=== PATIENT | female | born 1955 | race Caucasian/White ===

== ENCOUNTER 2017-09-01 06:27 | Inpatient (IN) | payer MEDICAID, SELFPAY ==
[2017-08-27 08:44] VITALS: BP 102/56; PULSE 53; RESP 14; TEMP 36.1; O2SAT 96; BMI 35.6
--- NOTE | 2017-08-27 09:23 | SDCEKG_ITS ---
Test Reason : Blood Pressure : / mmHG Vent. Rate : 050 BPM Atrial Rate : 050 BPM P-R Int : 134 ms QRS Dur : 074 ms QT Int : 444 ms P-R-T Axes : 032 -16 -27 degrees QTc Int : 404 ms Sinus bradycardia Low voltage QRS Possible Inferior infarct , age undetermined Abnormal ECG Confirmed by CALLI THOMPSON, CAROLINE ([id number]), editor sound ROSSY PURCELL ([id number]) on 08/29/2017 9:26:38 AM Referred By: SONNY COBB Confirmed By:CAROLINE MCCURDY MD
[2017-08-27 10:23] LABS: Hematocrit 38.8 % (37-47); Hemoglobin 12.8 g/dl (12.0-15.0); Mean Corpuscular Hgb 32.6 pg (27.0-32.0); Mean Corpuscular Volume 98.7 fL (81-99); Mean Platelet Vol. 12.6 fl (6.2-12.0); Platelet Count 238 K/mm3 (150-450); RBC Distribution Width SD 54.5 fl (35.1-43.9); Red Blood Count 3.93 M/mm3 (4.2-5.4); White Blood Count 4.5 K/mm3 (4.4-11.0)
[2017-08-27 10:25] LABS: Scan Indicated on CBC? Y/N NO
[2017-08-27 10:27] LABS: International Normalized Ratio 1.1; Prothrombin Time (Protime)PT. 13.9 SECONDS (11.7-14.9)
[2017-08-27 10:28] LABS: Partial Thromboplast Time 29.1 Seconds (24.1-36.2)
[2017-08-27 11:05] LABS: AST(SGOT) 21 U/L (15-37); Alanine Aminotransfer ALT/SGPT 32 U/L (13-56); Albumin, Serum 3.4 g/dL (3.2-5.0); Alkaline Phosphatase 72 U/L (45-117); Anion Gap 7 (5-15); BUN 16 mg/dL (7-18); BUN/Creat Ratio 23.1 RATIO (10-20); Calcium,Total 8.8 mg/dL (8.5-10.1); Chloride 103 mmol/L (98-107); Creatinine, Serum 0.69 mg/dL (0.55-1.02); EST Glomerular Filtration Rate 91 mL/min (>60); Est Glom Filt Rate - Afr Amer 110 mL/min (>60); Estimated Creatinine Clearance 59.94 ml/min; Globulin 4.2 g/dL (2.2-4.2); Glucose 85 mg/dL (74-106); Potassium 3.9 mmol/L (3.5-5.1); Protein, Total 7.6 g/dL (6.4-8.2); Sodium Level 140 mmol/L (136-145); Thyroid Stim Hormone (TSH) 1.52 uIU/mL (0.358-3.74)
[2017-09-01] VITALS (13 sets, daily range): BP systolic 83–116; BP diastolic 53–66; PULSE 49–112; RESP 16–18; TEMP 36–36.6; O2SAT 91–100; BMI 35.6
[2017-09-01] MEDS: Celecoxib 200 MG Capsule 400 MG PO (07:13)
[2017-09-01] MEDS: oxyCODONE HCl Cr 10 MG Tablet PO (07:14)
[2017-09-01] MEDS: Acetaminophen 500 MG Tablet 1000 MG PO ×3 (07:14→22:28)
[2017-09-01] MEDS: Cefazolin 2 GM in 0.9% Normal Saline 100 ML IV (08:29)
--- NOTE | 2017-09-01 09:31 | PCM.OPRPT ---
Report of Operation Date of Procedure: 09/01/17 Pre-Operative Diagnosis: Severe osteoarthritis left knee Post-Operative Diagnosis: Same Surgery/Procedure Performed:: Total knee arthroplasty left Description of Surgical Findings:: Varus alignment, eburnation of bone, periarticular osteophytes front office representative: Parth Hsieh Type of Anesthesia:: Spinal Anesthesiologist: Sanchez Garcia Special Medications: txa Specimen's removed: Bone and soft tissue Estimated Blood Loss (mL): 100 Fluids Replaced: See anesthesia report Description of Procedure: Implants: [place] triathlon size 3 CR femur, 2 tibia, 29 mm patella all cemented with Simplex, 13 mm ultra congruent CR articulating surface Indications: Patient has severe end-stage osteoarthritis diagnosed via x-rays in the knee. They have failed all forms of conservative measures including activity modification, injections, anti-inflammatories, use of assistive device. The patient has pain that affects on a daily basis and prevents him from doing things that they enjoyed. They have elected to undergo the above procedure. The risks of the procedure were discussed at length and their questions were answered. Procedure description: The patient was greeted in the preoperative area. The left knee was then marked with a surgical marker. Patient was then taken to or Suite 2. They were administered a dose of antibiotics as well as tranexamic acid. Once adequate anesthesia was obtained and airway was secured to placed in supine position on the operating room table. A well-padded tourniquet was placed on the affected extremity. Leg was then prepped and draped in the usual sterile fashion from the knee down. Ioban was used on the skin. Surgical timeout was then performed and confirmed with all present. Six-inch Esmarch was used to examine the limb and tourniquet was then inflated to 250 mmHg. A longitudinal incision was then planned and carried out in the anterior aspect of the knee. The dissection was then carried the length of the incision the extensor mechanism was identified. Standard medial parapatellar arthrotomy was then performed revealing severe eburnation of bone and periarticular osteophytes. There is complete loss of cartilage especially in the medial compartment with varus alignment. Anterior fat pad was removed for visualization purposes and the anterior medial aspect of the tibia was skeletonized for exposure to the knee. The knee was then flexed the patella was inverted. Opening reamer was then used in the femur approximately 1 cm anterior to the attachment of the PCL. The intramedullary valgus wand was then placed in the femur set at 5? of valgus. The distal femoral cutting jig was then applied to the femur with anticipated resection of approximately 8 mm. This was then made with a oscillating saw. The sizing guide was then placed referencing off the posterior condyles and also reference off the epicondylar axis. This was measured and the appropriate size 4-in-1 cutting jig was then applied to the distal femur. Anterior posterior cuts were made followed by the anterior and posterior chamfer cuts. These bony pieces and fragments were removed and placed on the back table. Posterior retractor was then utilized and the tibia was subluxed anteriorly. Extramedullary tibial alignment jig was then applied to the tibia referencing off the medial one third of the tibial tubercle the anterior tibial spine the middle aspect of the tibiotalar joint. Also reference off patient's que[place] slope. The tibial cutting jig was then pinned with anticipated resection of 2 mm off of the deficient medial tibial condyle. This cut was made with the oscillating saw. Once this was complete a laminar butcherette was utilized in both medial lateral meniscus were removed and a posterior capsular osteophytes were also removed. Posterior capsule release was performed in the posterior capsule as well as the geniculate arteries are treated with the aqua Rajeev. The tibia was incised and the appropriate sized tibial tray was then pinned. The femoral trial was then placed and the knee was trialed. Full flexion-extension were easily achieved. The knee seemed to balance quite nicely. Any remaining osteophytes were removed at this time. Once this was complete the patella was everted and the Jose patella reaming device was then utilized the patella was then placed in the appropriate jig and reamer was then used to remove approximately 9 mm of the undersurface of the patella. A soft tissue remaining was in the way was removed and patella trial was then placed listed maintain excellent tracking using the no thumbs technique. The tibial tray at this point was punched to accommodate the fins of the final implant. At this point cement was mixed on the back table. The trial components were removed and the knee was copiously irrigated. Did use a cocktail of injection for postoperative pain control. The final components were then cemented in the standard fashion and excess cement was removed with cement removal tools and patellar clamp is placed in the patella. As the cement had cured in full extension tourniquet was deflated and hemostasis was perfect with Bovie cautery as well as the aqua Manus. Needle is once again trialed with different size polyethylenes to ensure the full range of motion was achieved as well as excellent balancing ligamentously was achieved. At this point the knee was copiously irrigated. Final implant was then inserted locking mechanism was engaged and confirmed to be locked. The arthrotomy was then closed with #1 Vicryl aggravate type fashion interrupted. Subcutaneous tissue was closed with 0 Vicryl and surgical glenn were placed in the skin. A occlusive silver impregnated dressing was then applied followed by well-padded sterile dressing secured with an Haile wrap. The patient was taken to the PACU in stable condition. No complications known at this time. Postoperatively we will maintain standard total knee postoperative protocol. The use of the physician supply chain assistant was integral during this procedure. They assisted with positioning placement of the tourniquet retracting closure and placement of the dressing. The procedure would have been much more difficult without their expertise and assistance - Admit VTE Documentation VTE Present on Admission: Yes VTE Mechan Device Prophylaxis: SCD's, Thigh High RICARDO Hose VTE Pharm Prophylaxis ordered?: Yes
--- NOTE | 2017-09-01 09:34 | OP.PCM_ITS ---
Report of Operation Date of Procedure: 09/01/17 Pre-Operative Diagnosis: Severe osteoarthritis left knee Post-Operative Diagnosis: Same Surgery/Procedure Performed:: Total knee arthroplasty left Description of Surgical Findings:: Varus alignment, eburnation of bone, periarticular osteophytes supportability engineer: Parth Hsieh Type of Anesthesia:: Spinal Anesthesiologist: Sanchez Garcia Special Medications: txa Specimen's removed: Bone and soft tissue Estimated Blood Loss (mL): 100 Fluids Replaced: See anesthesia report Description of Procedure: Implants: [place] triathlon size 3 CR femur, 2 tibia, 29 mm patella all cemented with Simplex, 13 mm ultra congruent CR articulating surface Indications: Patient has severe end-stage osteoarthritis diagnosed via x-rays in the knee. They have failed all forms of conservative measures including activity modification, injections, anti-inflammatories, use of assistive device. The patient has pain that affects on a daily basis and prevents him from doing things that they enjoyed. They have elected to undergo the above procedure. The risks of the procedure were discussed at length and their questions were answered. Procedure description: The patient was greeted in the preoperative area. The left knee was then marked with a surgical marker. Patient was then taken to or Suite 2. They were administered a dose of antibiotics as well as tranexamic acid. Once adequate anesthesia was obtained and airway was secured to placed in supine position on the operating room table. A well-padded tourniquet was placed on the affected extremity. Leg was then prepped and draped in the usual sterile fashion from the knee down. Ioban was used on the skin. Surgical timeout was then performed and confirmed with all present. Six-inch Esmarch was used to examine the limb and tourniquet was then inflated to 250 mmHg. A longitudinal incision was then planned and carried out in the anterior aspect of the knee. The dissection was then carried the length of the incision the extensor mechanism was identified. Standard medial parapatellar arthrotomy was then performed revealing severe eburnation of bone and periarticular osteophytes. There is complete loss of cartilage especially in the medial compartment with varus alignment. Anterior fat pad was removed for visualization purposes and the anterior medial aspect of the tibia was skeletonized for exposure to the knee. The knee was then flexed the patella was inverted. Opening reamer was then used in the femur approximately 1 cm anterior to the attachment of the PCL. The intramedullary valgus wand was then placed in the femur set at 5? of valgus. The distal femoral cutting jig was then applied to the femur with anticipated resection of approximately 8 mm. This was then made with a oscillating saw. The sizing guide was then placed referencing off the posterior condyles and also reference off the epicondylar axis. This was measured and the appropriate size 4-in-1 cutting jig was then applied to the distal femur. Anterior posterior cuts were made followed by the anterior and posterior chamfer cuts. These bony pieces and fragments were removed and placed on the back table. Posterior retractor was then utilized and the tibia was subluxed anteriorly. Extramedullary tibial alignment jig was then applied to the tibia referencing off the medial one third of the tibial tubercle the anterior tibial spine the middle aspect of the tibiotalar joint. Also reference off patient's [employer] slope. The tibial cutting jig was then pinned with anticipated resection of 2 mm off of the deficient medial tibial condyle. This cut was made with the oscillating saw. Once this was complete a laminar weir fisherman was utilized in both medial lateral meniscus were removed and a posterior capsular osteophytes were also removed. Posterior capsule release was performed in the posterior capsule as well as the geniculate arteries are treated with the aqua Rajeev. The tibia was incised and the appropriate sized tibial tray was then pinned. The femoral trial was then placed and the knee was trialed. Full flexion-extension were easily achieved. The knee seemed to balance quite nicely. Any remaining osteophytes were removed at this time. Once this was complete the patella was everted and the Jose patella reaming device was then utilized the patella was then placed in the appropriate jig and reamer was then used to remove approximately 9 mm of the undersurface of the patella. A soft tissue remaining was in the way was removed and patella trial was then placed listed maintain excellent tracking using the no thumbs technique. The tibial tray at this point was punched to accommodate the fins of the final implant. At this point cement was mixed on the back table. The trial components were removed and the knee was copiously irrigated. Did use a cocktail of injection for postoperative pain control. The final components were then cemented in the standard fashion and excess cement was removed with cement removal tools and patellar clamp is placed in the patella. As the cement had cured in full extension tourniquet was deflated and hemostasis was perfect with Bovie cautery as well as the aqua Manus. Needle is once again trialed with different size polyethylenes to ensure the full range of motion was achieved as well as excellent balancing ligamentously was achieved. At this point the knee was copiously irrigated. Final implant was then inserted locking mechanism was engaged and confirmed to be locked. The arthrotomy was then closed with #1 Vicryl aggravate type fashion interrupted. Subcutaneous tissue was closed with 0 Vicryl and surgical glenn were placed in the skin. A occlusive silver impregnated dressing was then applied followed by well-padded sterile dressing secured with an Haile wrap. The patient was taken to the PACU in stable condition. No complications known at this time. Postoperatively we will maintain standard total knee postoperative protocol. The use of the physician assistant professor nurse education was integral during this procedure. They assisted with positioning placement of the tourniquet retracting closure and placement of the dressing. The procedure would have been much more difficult without their expertise and assistance - Admit VTE Documentation VTE Present on Admission: Yes VTE Mechan Device Prophylaxis: SCD's, Thigh High RICARDO Hose VTE Pharm Prophylaxis ordered?: Yes
[2017-09-01] MEDS: Scopolamine 1mg/72hr Patch 1 PATCH TD (10:25)
[2017-09-01] MEDS: Lactated Ringers 1,000 ML 125 ML IV ×2 (13:54→22:29)
[2017-09-01] MEDS: Lactated Ringers 1,000 ML 999 ML IV (15:00)
--- NOTE | 2017-09-01 15:03 | NURSING ---
TR[place] POSITION FOR C/O DIZZINESS, GIVING IV FLUID BOLUS PER NEW ORDER.
[2017-09-01] MEDS: Aspirin 325 MG Tablet PO (17:39)
[2017-09-01] MEDS: Primidone 250 MG Tablet PO (17:39)
[2017-09-01] MEDS: Cefazolin 1 GM/50 ML BAG IV (17:39)
[2017-09-01] MEDS: Divalproex Sodium 250 MG Tablet PO (17:40)
[2017-09-01] MEDS: Celecoxib 200 MG Capsule PO (22:27)
[2017-09-01] MEDS: Divalproex Sodium 125 MG Tablet PO (22:27)
[2017-09-01] MEDS: Senna/Docusate Sodium 1 Tablet 2 TABLET PO (22:28)
[2017-09-02] MEDS: Cefazolin 1 GM/50 ML BAG IV (00:38)
[2017-09-02] MEDS: Ketorolac 15 MG/ML Vial IV (03:30)
[2017-09-02 04:00] VITALS: BP 98/58; PULSE 51; RESP 16; TEMP 36.6; O2SAT 96
[2017-09-02] MEDS: Divalproex Sodium 250 MG Tablet PO ×4 (06:00→17:10)
[2017-09-02] MEDS: Acetaminophen 500 MG Tablet 1000 MG PO ×3 (06:00→21:28)
[2017-09-02] MEDS: Lactated Ringers 1,000 ML 125 ML IV (06:00)
[2017-09-02] MEDS: Levothyroxine 100 MCG Tablet PO (06:00)
[2017-09-02 07:11] LABS: Hemoglobin 11.2 g/dl (12.0-15.0); Mean Corp Hgb Conc 32.9 g/gl (32-36); Mean Corpuscular Hgb 32.2 pg (27.0-32.0); Mean Corpuscular Volume 97.7 fL (81-99); Mean Platelet Vol. 12.4 fl (6.2-12.0); Platelet Count 218 K/mm3 (150-450); RBC Distribution Width CV 15.1 % (11.6-14.6); RBC Distribution Width SD 53.4 fl (35.1-43.9); Red Blood Count 3.48 M/mm3 (4.2-5.4); White Blood Count 6.5 K/mm3 (4.4-11.0)
[2017-09-02 07:18] LABS: Scan Indicated on CBC? Y/N NO
[2017-09-02 07:20] LABS: Anion Gap 8 (5-15); BUN 11 mg/dL (7-18); BUN/Creat Ratio 16.2 RATIO (10-20); Calcium,Total 8.4 mg/dL (8.5-10.1); Chloride 106 mmol/L (98-107); Creatinine, Serum 0.68 mg/dL (0.55-1.02); EST Glomerular Filtration Rate 93 mL/min (>60); Est Glom Filt Rate - Afr Amer 112 mL/min (>60); Estimated Creatinine Clearance 60.82 ml/min; Glucose 110 mg/dL (74-106); Potassium 3.8 mmol/L (3.5-5.1); Sodium Level 141 mmol/L (136-145)
--- NOTE | 2017-09-02 07:29 | PCM.PN.ORT ---
Subjective: Patient sitting at bedside. States pain is well-managed. Per patient as well as nursing yesterday patient had brief period of syncopal episode with a near fall in the bathroom. Patient states she had no injury associated with this fall. She feels that she is improved and does not feel as lightheaded as she did yesterday. Patient denies chest pain, shortness breath, calf pain, nausea vomiting. States she had similar episode on her previous surgery Objective: Dressings clean dry intact, negative signs and symptoms of DVT. Patient is afebrile patient's hypotensive from her preoperative baseline. Neurovascular is otherwise intact. Labs within normal limits - Physical Exam General: Alert, Oriented x3, Cooperative HEENT: PERRLA Oral: Moist Mucosa Cardiovascular: Regular rate Neurological: Cranial nerves II-XII grossly intact Psych/Mental Status: Normal Affect, Alert and oriented to time, place, person, mood and affect Vital Signs Temp Pulse Resp BP Pulse Ox 98 F 51 L 16 98/58 L 96 09/02/17 04:00 09/02/17 04:00 09/02/17 04:00 09/02/17 04:00 09/02/17 04:00 Oxygen Delivery Method Room Air Weight: 82.9 kg Body Mass Index (BMI) 35.6 Intake and Output for Last 24 Hours 08/31/17 09/01/17 09/02/17 23:59 23:59 23:59 Intake Total 3385 / 3385 2110 / 2110 Output Total 600 / 600 1450 / 1450 Balance 2785 / 2785 660 / 660 Laboratory Tests Past 24 Hrs 09/02/17 09/02/17 06:35 06:35 WBC 6.5 RBC 3.48 L Hgb 11.2 L Hct 34.0 L MCV 97.7 MCH 32.2 H MCHC 32.9 RDW 15.1 H RDW Differential 53.4 H Plt Count 218 MPV 12.4 H Sodium 141 Potassium 3.8 Chloride 106 Carbon Dioxide 27.0 Anion Gap 8 BUN 11 Creatinine 0.68 Estim Creat Clear Calc 60.82 Est GFR (MDRD) Af Amer 112 Est GFR (MDRD) Non-Af 93 BUN/Creatinine Ratio 16.2 Glucose 110 H Calcium 8.4 L Medical Necessity - Tobacco Use Smoking Status: Never smoker Assessment/Plan Status post left total knee arthroplasty Plan 1. Continue all pain medications as prescribed 2. Aspirin 325 mg 1 p.o. every 12 hours ?30 day for postop DVT prophylaxis 3. Begin physical therapy today weight-bear as tolerated, with walker 4. Encourage incentive spirometry 5. IV bolus 500 normal saline over 1 hour 6. Possible discharge home tomorrow
[2017-09-02] MEDS: Lactated Ringers 1,000 ML 999 ML IV (07:30)
[2017-09-02 07:35] VITALS: BP 98/54; PULSE 52; RESP 16; TEMP 36.7; O2SAT 94
[2017-09-02 07:38] VITALS: PULSE 52
[2017-09-02] MEDS: Aspirin 325 MG Tablet PO ×2 (07:46→17:10)
[2017-09-02] MEDS: Primidone 250 MG Tablet PO ×2 (07:46→17:13)
[2017-09-02] MEDS: Famotidine 20 MG Tablet PO (09:48)
[2017-09-02] MEDS: Senna/Docusate Sodium 1 Tablet 2 TABLET PO ×2 (09:48→21:28)
[2017-09-02] MEDS: FLUoxetine 20 MG Capsule PO (09:48)
[2017-09-02] MEDS: Celecoxib 200 MG Capsule PO ×2 (09:49→21:27)
[2017-09-02] MEDS: oxyCODONE 5 MG Tablet PO ×2 (12:45→17:17)
[2017-09-02 13:35] VITALS: BP 100/59; PULSE 62; RESP 16; TEMP 36.7; O2SAT 97
--- NOTE | 2017-09-02 15:29 | CASEMGMT ---
RENATA PARIKH Face to Face with patient for initial transition planning/care coordination assessment. RN JL introduced self and role at [facility]. Patient sitting in chair, alert and oriented. Patient willing to participate in assessment and is able to answer all questions appropriately. Care providers, pharmacy, and demographics verified. Patient states that she will be discharging to her [facility] house after surgery. Patient states that she is has a walker and shower chair at home. Patient wishes to discharge home and is setup with outpatient therapy at [facility] Patient states she has no further needs or concerns at this time. CM to follow for discharge planning needs that may arise. Disposition Plan: Patient to discharge home with outpatient therapy, family support, and follow-up plans in place.
[2017-09-02 20:00] VITALS: BP 104/54; PULSE 65; RESP 16; TEMP 36.9; O2SAT 96
[2017-09-02] MEDS: morphine SR 15 MG Tablet PO (21:27)
[2017-09-02] MEDS: Divalproex Sodium 125 MG Tablet PO (21:29)
[2017-09-03 02:17] VITALS: BP 127/54; PULSE 53; RESP 18; TEMP 36.9; O2SAT 95
[2017-09-03] MEDS: Levothyroxine 100 MCG Tablet PO (05:31)
[2017-09-03] MEDS: Divalproex Sodium 250 MG Tablet PO ×3 (05:31→13:40)
[2017-09-03] MEDS: Acetaminophen 500 MG Tablet 1000 MG PO ×2 (05:32→13:40)
[2017-09-03 07:00] LABS: Hematocrit 33.4 % (37-47); Mean Corp Hgb Conc 32.9 g/gl (32-36); Mean Corpuscular Hgb 32.4 pg (27.0-32.0); Mean Corpuscular Volume 98.5 fL (81-99); Mean Platelet Vol. 12.6 fl (6.2-12.0); Platelet Count 210 K/mm3 (150-450); RBC Distribution Width CV 15.4 % (11.6-14.6); RBC Distribution Width SD 55.3 fl (35.1-43.9); Red Blood Count 3.39 M/mm3 (4.2-5.4); White Blood Count 7.5 K/mm3 (4.4-11.0)
[2017-09-03 07:04] LABS: Scan Indicated on CBC? Y/N NO
[2017-09-03 08:00] VITALS: BP 99/61; PULSE 60; RESP 18; TEMP 36.8; O2SAT 95
[2017-09-03] MEDS: morphine SR 15 MG Tablet PO (08:08)
[2017-09-03] MEDS: oxyCODONE 5 MG Tablet PO (08:08)
[2017-09-03] MEDS: Primidone 250 MG Tablet PO (08:09)
[2017-09-03] MEDS: Aspirin 325 MG Tablet PO (08:09)
[2017-09-03] MEDS: FLUoxetine 20 MG Capsule PO (08:10)
[2017-09-03] MEDS: Famotidine 20 MG Tablet PO (08:10)
[2017-09-03] MEDS: Celecoxib 200 MG Capsule PO (08:10)
[2017-09-03 09:00] VITALS: PULSE 60
--- NOTE | 2017-09-03 09:17 | PCM.PN.ORT ---
Subjective: Patient sitting at bedside, pain well-managed. No complaints. Ready for discharge home. Objective: Dressings clean dry intact. Negative signs and symptoms of DVT. Vital signs labs within normal limits. Patient is afebrile neurovascular is otherwise intact. - Physical Exam General: Alert, Oriented x3 HEENT: PERRLA Neurological: Cranial nerves II-XII grossly intact Psych/Mental Status: Normal Affect, Alert and oriented to time, place, person, mood and affect Vital Signs Temp Pulse Resp BP Pulse Ox 98.2 F 60 18 99/61 95 09/03/17 08:00 09/03/17 09:00 09/03/17 08:00 09/03/17 08:00 09/03/17 08:00 Oxygen Delivery Method Room Air Weight: 82.9 kg Body Mass Index (BMI) 35.6 Intake and Output for Last 24 Hours 09/01/17 09/02/17 09/03/17 23:59 23:59 23:59 Intake Total 3385 / 3385 2110 / 2110 400 / 400 Output Total 600 / 600 1450 / 1450 Balance 2785 / 2785 660 / 660 400 / 400 Laboratory Tests Past 24 Hrs 09/03/17 06:40 WBC 7.5 RBC 3.39 L Hgb 11.0 L Hct 33.4 L MCV 98.5 MCH 32.4 H MCHC 32.9 RDW 15.4 H RDW Differential 55.3 H Plt Count 210 MPV 12.6 H Medical Necessity - Tobacco Use Smoking Status: Never smoker Assessment/Plan Status post left total knee arthroplasty Plan 1. Continue all pain medications as prescribed 2. Aspirin 325 mg 1 p.o. every 12 hours ?30 day for postop DVT prophylaxis 3. Continue physical therapy at [facility] weight-bear as tolerated, with walker 4. Follow-up as scheduled 6. Discharge home today
--- NOTE | 2017-09-03 09:22 | PCM.DC.TKR ---
Discharge Diet: No Restrictions Discharge Activity: May Not Drive, May Shower, Use Walker May shower in (days): 2 Ice area for (Minutes): 20 - each hour while awake. Weight Bearing Status: Weight bearing as tolerated Elevate: Operative Extremity Additional Activity Instructions:: Wear elastic stockings for 2 weeks after your surgery. Call your doctor if your incision/area has: Continuous Slow Oozing, Sudden Increased Bleeding, Increased Pain/ Swelling, Increased Redness, Foul Smelling Discharge Call your doctor if you observe: Fever of 101 or Higher, Coldness, Increased Pain - in extremity, Numbness or Tingling, Change in Color, Calf discomfort, Uncontrolled pain Change Dressing in (Days):: 0 - and daily as needed. Remove Dressing in (days):: 9 Cleanse incision/area with: Soap & Water Allergies/Adverse Reactions: Allergies No Known Allergies Allergy (Verified 10/25/14 08:44) Medications to take at Discharge Divalproex Sodium [Depakote] 125 mg PO QHS 10/14/14 Divalproex Sodium [Depakote] 250 mg PO 4X/DAY 10/14/14 Fluoxetine HCl 20 mg PO DAILY 10/14/14 Levothyroxine Sodium [Levoxyl] 100 mcg PO DAILY 10/14/14 Primidone [Mysoline] 250 mg PO BID 10/14/14 Vitamin B Complex 1 each PO DAILY 10/14/14 Acetaminophen [Tylenol] 1,000 mg PO Q8 #90 tab 09/03/17 Aspirin 325 mg PO BIDCM #60 tab 09/03/17 Oxycodone [Oxyir] 5 - 10 mg PO Q4H PRN PRN 7 Days #80 tab 09/03/17 morphine SR tablet [Ms Contin] 15 mg PO BID 7 Days #14 tab 09/03/17 The following prescriptions were given: Oxycodone [Oxyir] 5 - 10 mg PO Q4H PRN PRN 7 Days #80 tab PRN Reason: Mod-Severe Pain (4-1010) Acetaminophen [Tylenol] 1,000 mg PO Q8 #90 tab Aspirin 325 mg PO BIDCM #60 tab morphine SR tablet [Ms Contin] 15 mg PO BID 7 Days #14 tab Primary Care Physician: Dale Dalal MD [Primary Care Provider] - Test Results: Please Follow Up With: Parth Hsieh PA-C
[2017-09-03 13:24] VITALS: BP 96/57; PULSE 57; RESP 18; TEMP 37.1; O2SAT 98
--- NOTE | 2017-09-03 13:42 | NURSING ---
spoke with dr francine luuing ms contin- gave v.o. to stop it and destroy script d/t pt seems weak when taking it-pt and sister updated, Rx detroyed in shredder box and family aware pt not to take any more
== END 2017-09-03 13:55 | disposition home or self-care (01) | DRG 209 ==
LOC: ACINP 08:07 → MS3 11:13
PROVIDERS: Physician Assistant; Admitting Provider Orthopaedic Surgery; Family Provider Family Medicine; PCP Family Medicine; Visit Provider Orthopaedic Surgery
PROC: 0SRD0J9 Replacement of Left Knee Joint with Synthetic Substitute, Cemented, Open Approach (ICD-10-PCS; CPT 27447; principal; 2017-09-01 08:20)
DX: M17.12 Unilateral primary osteoarthritis, left knee (principal); E66.9 Obesity, unspecified; Z68.35 Body mass index [BMI] 35.0-35.9, adult
CPT/HCPCS: 36415; 80048; 80076; 84443; 85027; 85610; 85730; 87081; 93005; 97116; 97162; 97166; 97530; 97535; 97802; C1776; J7120

== ENCOUNTER → 2019-09-09 08:33 | Outpatient (CLI) | payer MEDICARE, SELFPAY ==
--- NOTE | 2019-09-09 08:45 | RAD_ITS ---
STUDY: X-RAY - ESOPHAGUS (BARIUM SWALLOW) WITH FLUOROSCOPY REASON FOR EXAM: Female, 63 years old. Dysphagia, pt states food and pills get stuck sometimes, gallbladder removed TECHNIQUE: 16 view(s) of the esophagus were obtained following swallowing of barium. FLUOROSCOPY TIME (if supplied): (0:17) minutes/seconds COMPARISON: None. FINDINGS: There is no demonstrated esophageal foreign body. There is no demonstrated stricture or mucosal abnormality. Normal gastroesophageal junction, without a demonstrated hiatal hernia. The patient ingested a 12 mm tablet of barium without any difficulty. There is atherosclerotic tortuosity of the aortic arch and descending thoracic aorta. Normal visualized pulmonary parenchyma. There are diffuse degenerative changes of the visualized thoracic spine. RAD/Esophagus Dual Contrast IMPRESSION: Normal plain film x-ray examination (barium swallow) of the esophagus. Electronically Signed: Adolfo Amezcua, at 13:39 EDT , Service support ,
== END ==
PROVIDERS: PCP Family Medicine; Referring Provider Otolaryngology; Visit Provider Otolaryngology
DX: R13.10 Dysphagia, unspecified (principal)
CPT/HCPCS: 74220; 74221

== ENCOUNTER 2020-01-28 14:00 | Emergency (ER) | payer MEDICARE, SELFPAY ==
[2020-01-28 14:02] VITALS: BP 126/78; PULSE 90; RESP 18; TEMP 36.6; O2SAT 96; BMI 32.8
[2020-01-28 14:15] VITALS: BP 145/119; PULSE 88; RESP 18; O2SAT 94
--- NOTE | 2020-01-28 14:18 | CT_ITS ---
INDICATION: LLQ PAIN, DIARRHEA SINCE FRIDAY, BM EVERY 5-10 MIN, HX-SZ, JANIE EXAMINATION: CT ABDOMEN AND PELVIS WITH CONTRAST - CT Abdomen And Pelvis W/ Contrast Injection COMPARISON: None. TECHNIQUE: A CT scan of the abdomen and pelvis was performed with IV contrast contrast administration. Coronal and sagittal reconstruction images were reviewed. This exam was performed according to our departmental dose-optimization program, which includes automated exposure control, adjustment of the mA and/or kV according to patient size and/or use of iterative reconstruction technique. FINDINGS: The lung bases and the base of the heart are normal. The liver is normal.The spleen is normal.The adrenal glands are normal.The head, body, and tail of the pancreas are normal. The right and left kidneys were examined and appear to be normal. Both ureters appear to be normal, and no obstructive uropathy is identified. The abdominal aortal is normal along its course and distribution. No paraortic lymphadenopathy is seen. No abdominal masses or lesions are seen. The CT scan of the pelvis was then reviewed. The common iliac vessels, external iliac vessels, and common femoral vessels are normal along their course and distribution No pelvis masses or lesions are seen. There is fluid distention of loops of colon and particularly the descending portion of the colon with some mild surrounding inflammatory reaction seen at the descending colon/sigmoid junction possibly representing an inflammatory colitis The appendix is not seen No pericecal inflammatory reaction is seen. Bone scanning windows of the lumbar spine and pelvis were reviewed in the coronal and sagittal planes and appear to be normal. CT/Abdomen/Pelvis W IV Cont ONLY IMPRESSION: Fluid distention is noted of the colon with some minimal pericolonic inflammatory reaction of the distal descending colon possibly due to colitis. Electronically Signed: Zhou Angeles, at 16:21 EST Tel , Service support ,
--- NOTE | 2020-01-28 14:19 | EKG12_ITS ---
Test Reason : GEN ILLNESS Blood Pressure : / mmHG Vent. Rate : 072 BPM Atrial Rate : 072 BPM P-R Int : 134 ms QRS Dur : 078 ms QT Int : 406 ms P-R-T Axes : 053 -20 260 degrees QTc Int : 444 ms Normal sinus rhythm ST & T wave abnormality, consider inferior ischemia ST & T wave abnormality, consider anterolateral ischemia Abnormal ECG Confirmed by CALLI THOMPSON, CAROLINE ([id number]), city editor JADE OMSQUEDA ([id number]) on 02/01/2020 9:08:30 AM Referred By: JORDI Confirmed By:CAROLINE MCCURDY MD
--- NOTE | 2020-01-28 14:20 | ED.DCSUM_ITS ---
History of Present Illness Informant: Patient Onset: Days Narrative: 64-year-old female with past medical history of hypothyroidism, GERD, epilepsy presents with complaints of diarrhea. She states 1 month ago she thinks she had Covid because she had fevers/chills/cough/loss of taste and smell. She has had a mild persistent cough and shortness of breath since then. Over the last 5 days she developed profuse nonbloody diarrhea. She has loose stools every hour. She has intermittent brief left-sided abdominal cramping. She had one episode of vomiting several days ago, but none since. She has been keeping down fluids and medications. Previous abdominal surgeries include cholecystectomy. No history of diverticulitis. <Misti Beard - Last Filed: 01/28/20 16:35> <Audi Desir - Last Filed: 01/28/20 22:19> Chief Complaint: Diarrhea Past Medical History Past Medical History: - - hypothyroidism, GERD, epilepsy Smoking Status: Never smoker <Misti Beard - Last Filed: 01/28/20 16:35> <Audi Desir - Last Filed: 01/28/20 22:19> - Allergies and Home Meds Allergies/Adverse Reactions: Allergies No Known Allergies Allergy (Verified 01/28/20 14:06) Primary Care Physician: Dale Dalal MD [Primary Care Provider] - Lor Pettit MD [STAFF PHYSICIAN] - Review of Systems General: Denies: Chills, Fever, Malaise, Sweats Cardiovascular: Denies: Chest pain, Palpitations Respiratory: Denies: Dyspnea, Cough, Dyspnea on exertion Gastrointestinal: Reports: Abdominal pain, Nausea, Vomiting, Diarrhea. Denies: Constipation, Melena, Hematochezia Genitourinary: Denies: Dysuria, Hematuria, Frequency Musculoskeletal: Denies: Back pain, Extremity Pain Skin: Denies: Rash, Wounds Neurological: Denies: Headache, Weakness, Numbness <Misti Beard - Last Filed: 01/28/20 16:35> Physical Exam Vital Signs/Narrative: Vital Signs Temp Pulse Resp BP Pulse Ox 01/28/20 14:15 88 18 145/119 H 94 01/28/20 14:02 97.9 F 90 18 126/78 H 96 Inital Vital Signs reviewed: Yes General: Well nourished, Well developed, No Acute Distress Head: Normocephalic, Atraumatic Eyes: Perrl, EOMI ENT: Moist mucous membranes, No rhinorrhea Neck: Supple, Nontender Cardiovascular: Regular rate, Regular rhythm, No murmurs Respiratory: No distress, CTA bilaterally, Chest nontender Abdomen: Soft, Nondistended, Normal bowel sounds, - - Moderate tenderness to palpation in left lower quadrant, soft with no guarding or rebound Back: Nontender, Normal Inspection. Negative for: CVA tenderness Extremities: Nontender, No edema Skin: Normal color, No rash Neurological: Alert, Oriented x3, Cranial nerves II-XII grossly intact Psychological: Normal affect, Normal Mood <Misti Beard - Last Filed: 01/28/20 16:35> Vital Signs/Narrative: Vital Signs Temp Pulse Resp BP Pulse Ox 01/28/20 15:05 97.9 F 80 19 H 88/56 L 97 01/28/20 14:15 88 18 145/119 H 94 01/28/20 14:02 97.9 F 90 18 126/78 H 96 <Audi Desir - Last Filed: 01/28/20 22:19> Diagnostic/Tx/Re-eval Clinical Impression(s) from Imaging Studies Abdomen/Pelvis CT 01/28/20 14:18 IMPRESSION: Fluid distention is noted of the colon with some minimal pericolonic inflammatory reaction of the distal descending colon possibly due to colitis. Electronically Signed: Zhou Angeles, at 16:21 EST Tel , Service support , Chest X-Ray 01/28/20 14:55 IMPRESSION: Normal portable chest. Electronically Signed: Zhou Angeles at 16:04 EST Tel , Service support , Laboratory Data 01/28/20 01/28/20 14:55 14:55 WBC 8.8 RBC 4.91 Hgb 15.9 H Hct 46.4 MCV 94.5 MCH 32.4 H MCHC 34.3 RDW Std Deviation 45.3 H RDW Coeff of Lucio 13.1 Plt Count 375 MPV 11.0 Immature Gran % (Auto) 0.800 Neut % (Auto) 64.2 Lymph % (Auto) 23.8 [place]iot % (Auto) 10.6 H Eos % (Auto) 0.3 Baso % (Auto) 0.3 Absolute Neuts (auto) 5.7 Absolute Lymphs (auto) 2.09 Nucleated RBC % 0 Sodium 133 L Potassium 3.4 L Chloride 101 Carbon Dioxide 22.0 Anion Gap 10 BUN 34 H Creatinine 1.00 Estim Creat Clear Calc 53.81 Est GFR (MDRD) Af Amer 71 Est GFR (MDRD) Non-Af 59 L BUN/Creatinine Ratio 34.0 H Glucose 105 Calcium 8.3 L Total Bilirubin 0.40 AST 36 ALT 51 Alkaline Phosphatase 90 Troponin I < 0.015 Total Protein 7.6 Albumin 3.2 Globulin 4.4 H Albumin/Globulin Ratio 0.7 L - Rhythm Strip Rhythm Strip: T wave inversions V2-V6 Rate: 72 Ectopy: None - Medical Decision Making Patient presented with diarrhea x4 days. She states she thinks she had Covid recently and her cough has resolved, but she has residual shortness of breath. No chest pain. She appears well nontoxic. Vital signs within normal limits. Heart is regular rate and rhythm with no murmur. Lungs clear to auscultation. She has mild left lower quadrant tenderness on exam with no peritoneal signs. Labs show no leukocytosis. Sodium 133, potassium 3.4, normal renal function. CT shows fluid distention of the colon with minimal pericolonic inflammatory reaction of the distal descending colon possibly due to colitis. They did not comment on diverticulitis but since she has LLQ pain she will be treated with Cipro/Flagyl. First dose was given here. C-diff and stool PCR pending and if positive she will be called with results. She was given a referral to general surgery to have a colonoscopy after symptoms improve as she has not had one in the past. Increase oral hydration. Due to residual shortness of breath, cardiac labs ordered. Troponin negative. EKG shows new T wave inversions in V2 through V6 changed from EKG in 2018. Chest x-ray shows no acute process. She has no chest pain and O2 sat is >= 94%. I have no concern for ACS. She needs to follow-up with her PCP to have a stress test. If she develops chest pain she should return to the ED. She was agreeable with this plan and discharged home in stable condition. <ChiragMisti - Last Filed: 01/28/20 16:35> - Medical Decision Making I supervised the PA and have performed my own pertinent history and physical. Results and treatment plan were discussed. HPI: Patient reports that she has diarrhea that began 3 days ago. She reports that she believes that she had Covid recently, but her cough has resolved. She does have residual mild shortness of breath. She denies any chest pain. Patient believes that her diarrhea began after potentially eating bad lunch meat. She has not been camping out of the country. No recent antibiotic use. She does not drink well water. PE: Vitals: Stable. Afebrile. General: Well-nourished and well-developed. Head: Normocephalic atraumatic. Neck: Supple, no lymphadenopathy. No JVD. Nontender. Cardiovascular: Regular rate and rhythm. No murmurs. Respiratory: No respiratory distress. Clear to auscultation bilaterally. Abdominal: Soft, mild tenderness to palpation on the left lower quadrant, nondistended, normal bowel sounds. No guarding, rebound, or peritoneal signs. Back: Nontender. Extremities: Nontender, no edema. Skin: Normal color, no rash. Neurologic: Alert and oriented ?3. Cranial nerves II through XII are intact. Normal strength and sensation. Psych: Normal affect. Emergency Department course: EKG shows T wave inversions over the precordial leads that are a change from her prior EKG. however, troponin was negative and this may not be acute. CT shows colitis. C. difficile was negative. Treatment Plan: Patient will be discharged on Cipro and Flagyl. Instructed to follow-up with her primary care physician in 5 to 7 days for another exam. Follow-up with Dr. Pettit for colonoscopy. Return to the emergency department for any worsening symptoms. This note was generated with [employer] dictation software. It may contain incorrect words, spelling, and punctuation that were not noted in review of the chart prior to signing. <Audi Desir - Last Filed: 01/28/20 22:19> ED Disposition <Misti Beard - Last Filed: 01/28/20 16:35> <Audi Desir - Last Filed: 01/28/20 22:19> - Plan for ED Patient: Disposition: Home or Assisted Living Diagnosis: Diverticulitis Instructions: ED Diverticulitis Prescriptions: Ciprofloxacin [Cipro] 500 mg PO BID #14 tab Prescription Printed metroNIDAZOLE [Flagyl] 500 mg PO Q6H #40 tab Prescription Printed Referrals: Dale Dalal MD [Primary Care Provider] - Lor Pettit MD [STAFF PHYSICIAN] -
--- NOTE | 2020-01-28 14:55 | RAD_ITS ---
EXAM DESCRIPTION: PORTABLE AP CHEST CLINICAL HISTORY: 64 years Female, diarrhea, occasional nausea diarrhea, occasional nausea COMPARISON: None FINDINGS: The thorax is intact. The heart and mediastinum appear to be within normal limits. The lungs appear to be well areated without evidence of pneumonic consolidation or pleural effusion. RAD/Chest 1 View (Portable) IMPRESSION: Normal portable chest. Electronically Signed: Zhou Karthik, at 16:04 EST Tel , Service support ,
[2020-01-28 15:05] VITALS: BP 88/56; PULSE 80; RESP 19; TEMP 36.6; O2SAT 97
[2020-01-28 15:07] LABS: Absolute Lymphocyte Count 2.09 X10^3/uL (0.83-4.51); Absolute Neutrophil Count 5.7 X10^3/uL (2.0-7.7); Basophil# 0.03 X10^3/uL; Basophil% 0.3 % (0-1); Eosinophil# 0.03 X10^3/uL; Eosinophils% 0.3 % (0-5); Hematocrit 46.4 % (37-47); Hemoglobin 15.9 g/dL (12.0-15.0); Lymphocyte # 2.09 X10^3/ul (4.0); Lymphocyte % 23.8 % (19-41); Mean Corp Hgb Conc 34.3 g/dL (32-36); Mean Corpuscular Hgb 32.4 pg (27.0-32.0); Mean Corpuscular Volume 94.5 fL (81-99); Monocyte# 0.93 X10^3/uL; Monocyte% 10.6 % (0-10); NRBC Flagged by Analyzer 0 % (0-5); Neutrophil # 5.65 X10^3/uL (2.7-7.7); Neutrophil % 64.2 % (47-70); Platelet Count 375 K/mm3 (150-450); RBC Distribution Width CV 13.1 % (11.6-14.6); RBC Distribution Width SD 45.3 fl (35.1-43.9); Red Blood Count 4.91 M/mm3 (4.2-5.4); White Blood Count 8.8 K/mm3 (4.4-11.0)
[2020-01-28 15:34] LABS: ALB/GLOB Ratio 0.7 RATIO (0.9-2.4); AST(SGOT) 36 U/L (15-37); Alanine Aminotransfer ALT/SGPT 51 U/L (13-56); Albumin, Serum 3.2 g/dL (3.2-5.0); Alkaline Phosphatase 90 U/L (45-117); Anion Gap 10 (5-15); BUN 34 mg/dL (7-18); Calcium,Total 8.3 mg/dL (8.5-10.1); Chloride 101 mmol/L (98-107); EST Glomerular Filtration Rate 59 mL/min (>60); Est Glom Filt Rate - Afr Amer 71 mL/min (>60); Estimated Creatinine Clearance 53.81 ml/min; Globulin 4.4 g/dL (2.2-4.2); Glucose 105 mg/dL (74-106); Potassium 3.4 mmol/L (3.5-5.1); Protein, Total 7.6 g/dL (6.4-8.2); Sodium Level 133 mmol/L (136-145)
[2020-01-28] MEDS: 0.9% Normal Saline 1,000 ML 999 ML IV (15:59)
[2020-01-28 16:00] VITALS: BP 120/76; PULSE 73; PULSE 80; RESP 18; RESP 19; TEMP 36.7; O2SAT 94; O2SAT 98
[2020-01-28 16:30] LABS: Mucous, Urine 0 SEEN /hpf (<or=2+); Red Blood Cells-Urine 0 SEEN /hpf (0-5); Squamous Epithelial Cells - UA 0 SEEN /hpf (5-10); White Blood Cells 0 SEEN /hpf (0-5)
[2020-01-28 16:34] LABS: Color, Urine Yellow (Yellow); Glucose, Dipstick Normal (Normal); Ketone-Dipstick 5 mg/dl (Negative); Leukocyte Esterase-Dipstick Negative /ul (Negative); Nitrite-Dipstick Negative (Negative); Occult Blood-Urine Negative /ul (Negative); Protein-Dipstick 15 mg/dl (Negative); Specific Gravity, Urine 1.005 (1.002-1.030); Urine Bilirubin Dipstick Negative (Negative); Urine Clarity Clear (Clear); Urine Urobilinogen Normal (Normal)
[2020-01-28 16:43] LABS: Bacteria RARE /hpf (None Seen)
[2020-01-28] MEDS: metroNIDAZOLE 500 MG Tablet PO (16:54)
[2020-01-28] MEDS: Ciprofloxacin 250 MG Tablet 500 MG PO (16:54)
== END 2020-01-28 17:50 | disposition home or self-care (01) ==
PROVIDERS: Emergency Provider Physician Assistant; PCP Family Medicine
DX: K57.92 Diverticulitis of intestine, part unspecified, without perforation or abscess without bleeding (principal); G40.909 Epilepsy, unspecified, not intractable, without status epilepticus; E03.9 Hypothyroidism, unspecified; R06.02 Shortness of breath; K21.9 Gastro-esophageal reflux disease without esophagitis; Z79.899 Other long term (current) drug therapy
CPT/HCPCS: 71045; 74177; 80053; 81001; 84484; 85025; 87493; 87506; 93005; 96360; 99285; J7030; Q9967; A4216

== ENCOUNTER 2020-01-29 13:12 | Emergency (ER) | payer MEDICARE, SELFPAY ==
[2020-01-28 14:02] VITALS: BMI 32.8
[2020-01-29 13:14] VITALS: BP 113/62; PULSE 100; RESP 18; TEMP 36.7; O2SAT 97; BMI 37.0
[2020-01-29] MEDS: 0.9% Normal Saline 1,000 ML 1000 ML IV (13:49)
[2020-01-29] MEDS: Ondansetron 4 MG/2 ML Vial IV (13:54)
[2020-01-29 13:58] LABS: Absolute Lymphocyte Count 2.52 X10^3/uL (0.83-4.51); Absolute Neutrophil Count 6.3 X10^3/uL (2.0-7.7); Basophil# 0.03 X10^3/uL; Basophil% 0.3 % (0-1); Eosinophil# 0.03 X10^3/uL; Eosinophils% 0.3 % (0-5); Hematocrit 47.4 % (37-47); Hemoglobin 16.5 g/dL (12.0-15.0); Lymphocyte # 2.52 X10^3/ul (4.0); Lymphocyte % 25.5 % (19-41); Mean Corp Hgb Conc 34.8 g/dL (32-36); Mean Corpuscular Hgb 32.5 pg (27.0-32.0); Mean Corpuscular Volume 93.3 fL (81-99); Mean Platelet Vol. 11.4 fl (6.2-12.0); Monocyte# 0.96 X10^3/uL; Monocyte% 9.7 % (0-10); NRBC Flagged by Analyzer 0 % (0-5); Neutrophil # 6.28 X10^3/uL (2.7-7.7); Neutrophil % 63.6 % (47-70); Platelet Count 364 K/mm3 (150-450); RBC Distribution Width CV 13.1 % (11.6-14.6); RBC Distribution Width SD 44.3 fl (35.1-43.9); Red Blood Count 5.08 M/mm3 (4.2-5.4); White Blood Count 9.9 K/mm3 (4.4-11.0)
--- NOTE | 2020-01-29 14:16 | ED.DCSUM_ITS ---
- ER Visit Summary Date of Service: 01/29/20 Chief Complaint: Abdominal pain, nausea, vomiting, diarrhea History of Present Illness: The patient is a [address] Shane Campbell. She reports that she has not felt well for the past 4 days. She has had diarrhea multiple times per day for the past 4 days. She reports that she has had 4 episodes today. No blood in her stools or black tarry stools. She was seen emerge department yesterday and diagnosed with colitis. She was placed on Cipro and Flagyl. She reports she is been nauseated since taking those meds vomited twice. No blood in her emesis. Patient reports that she has sharp abdominal pain that comes and goes. 7-10 at worst and she is pain-free currently. Nothing seems to make this better or worse. She denies any dysuria or frequency. She does complain of generalized weakness. Physical Examination: Vitals: Stable. Afebrile. General: Well-nourished and well-developed. Head: Normocephalic atraumatic. Neck: Supple, no lymphadenopathy. No JVD. Nontender. Cardiovascular: Regular rate and rhythm. No murmurs. Respiratory: No respiratory distress. Clear to auscultation bilaterally. Abdominal: Soft, nontender, nondistended, normal bowel sounds. No guarding, rebound, or peritoneal signs. Back: Nontender. Extremities: Nontender, no edema. Skin: Normal color, no rash. Neurologic: Alert and oriented ?3. Cranial nerves II through XII are intact. Normal strength and sensation. Psych: Normal affect. Test Results: CBC is remarkable for an H&H of 16.5 and 47.4. Her hemoglobin was 15.9 yesterday suggesting hemoconcentration. Chem-7 shows a sodium 135, potassium 3.2, CO2 20, glucose 131, calcium 8.2, creatinine 1.14. Creatinine was 1.0 yesterday. Lactate is 1.9. Emergency Department Course and Treatment: Patient was given a liter of normal saline. She was given Zofran IV. She has had no vomiting while here. She is resting comfortably. Treatment Plan: Patient will be discharged with Zofran. Instructed to push fluids. Continue her Cipro and Flagyl. Follow-up with her primary care physician in 3 to 5 days not improving. Return to the emergency department for any worsening symptoms. Disposition: To home in improved and stable condition. Impression: 1. Colitis. 2. Mild dehydration. This note was generated with [employer] dictation software. It may contain incorrect words, spelling, and punctuation that were not noted in review of the chart prior to signing ED Disposition - Plan for ED Patient: Instructions: ED Diarrhea Viral Prescriptions: Hydrocodone Bitart/Apap 5-325 [Murphy 5MG-325MG] 1 tab PO Q4H PRN PRN 2 Days #10 tab PRN Reason: Pain Prescription Printed Ondansetron [Zofran Odt] 4 mg PO Q8H PRN PRN #10 tab PRN Reason: Nausea Prescription Printed Referrals: Dale Dalal MD [Primary Care Provider] - 3-5 Days if not improving
[2020-01-29 14:19] LABS: ALB/GLOB Ratio 0.8 RATIO (0.9-2.4); AST(SGOT) 24 U/L (15-37); Alanine Aminotransfer ALT/SGPT 41 U/L (13-56); Albumin, Serum 3.2 g/dL (3.2-5.0); Alkaline Phosphatase 81 U/L (45-117); Anion Gap 12 (5-15); BUN 35 mg/dL (7-18); BUN/Creat Ratio 30.7 RATIO (10-20); Calcium,Total 8.2 mg/dL (8.5-10.1); Chloride 103 mmol/L (98-107); Creatinine, Serum 1.14 mg/dL (0.55-1.02); EST Glomerular Filtration Rate 51 mL/min (>60); Est Glom Filt Rate - Afr Amer 61 mL/min (>60); Estimated Creatinine Clearance 38.39 ml/min; Globulin 3.8 g/dL (2.2-4.2); Glucose 131 mg/dL (74-106); Potassium 3.2 mmol/L (3.5-5.1); Sodium Level 135 mmol/L (136-145)
[2020-01-29 14:29] LABS: Lactic Acid 1.9 mmol/L (0.4-1.9)
[2020-01-29 15:15] VITALS: BP 144/89; PULSE 77; RESP 18; O2SAT 99
== END 2020-01-29 15:43 | disposition home or self-care (01) ==
LOC: ED 13:59
PROVIDERS: Emergency Provider Emergency Medicine; PCP Family Medicine
DX: K52.9 Noninfective gastroenteritis and colitis, unspecified (principal); E86.0 Dehydration
CPT/HCPCS: 80053; 83605; 85025; 96361; 96374; 99285; A4216; J2405

== ENCOUNTER → 2020-02-23 | Outpatient (CLI) | payer MEDICARE, SELFPAY ==
[2020-01-29 13:14] VITALS: BMI 37.0
[2020-02-23 13:43] LABS: D-Dimer Quantitative (DVT/PE) 0.31 FEU/ug/m (0.27-0.49)
== END | disposition home or self-care (01) ==
LOC: LABSPEC 12:53
PROVIDERS: PCP Family Medicine; Visit Provider Family Medicine
DX: R06.02 Shortness of breath (principal); R07.9 Chest pain, unspecified
CPT/HCPCS: 85379

== ENCOUNTER → 2020-03-09 13:11 | Outpatient (CLI) | payer MEDICARE, SELFPAY ==
--- NOTE | 2020-03-09 13:25 | STEWCON_ITS ---
Reason For Study: CHEST PAIN, SOB Stress Results Protocol: Dobtuamine Stress Echo Maximum Predicted HR: 154 bpm Target HR: 131 bpm % Maximum Predicted HR: 88 % DurationHeart Rate Stage (mm:ss) (bpm) BP Dose Comment BASELINE 55 110/55 2CC DEFINITY USED DURING STRESS DSE- 10 MCG 3:32 102 104/4710.00NO SX DSE- 20 MCG 3:08 136 109/4620.00NO SX RECOVERY 66 103/55 DENIES COMPLAINT Stress Duration: 6:40 mm:ss Maximum Stress HR: 136 bpm Baseline Echocardiogram Findings Stress Echo Wall motion Data Resting WM Intermediate WM Stress WM Resting Wall Motion Wall Motion Int. Wall Motion Stress All segments Normal. All segments Hyperkinetic. All segments Hyperkinetic. Ejection Fraction 55 %. Ejection Fraction 65 %. Ejection Fraction 75 %. Stress Results The patient exercised on a Beto protocol for only 1 minute not completing stage I achieving a heart rate of 122 bpm (79% predicted maximal heart rate) with a peak blood pressure 112/60 mmHg unable to proceed secondary to unable to walk on the treadmill. The patient's baseline ECG demonstrated sinus bradycardia with the peak exercise ECG demonstrating no obvious ECG changes. The patient had no obvious ongoing cardiac dysrhythmias pretest, during exercise, or recovery. The patient was subsequently changed to a pharmacologic (dobutamine) protocol which was terminated secondary to achieving target heart rate. During the pharmacologic (dobutamine) protocol the baseline rhythm was sinus bradycardia with a peak pharmacologic ECG demonstrating no obvious ECG changes. The patient was noted to have an isolated PVC during pharmacologic infusion. There was no report of chest discomfort during the evaluation. Interpretation Summary 1. Contrast injection performed 2. Negative (adequate) dobutamine stress echocardiogram Ordering Physician: Raymond Stringer Referring Physician: Raymond Stringer Performed By: Kim Boyd RDCS
== END ==
PROVIDERS: PCP Family Medicine; Referring Provider Family Medicine; Visit Provider Family Medicine
DX: R07.9 Chest pain, unspecified (principal); R06.02 Shortness of breath
CPT/HCPCS: 93017; 93350; J7040; Q9957; A4216; C8928

== ENCOUNTER 2024-08-01 10:28 | Observation (INO) | payer MEDICARE, SELFPAY ==
[2024-08-01] VITALS (8 sets, daily range): BP systolic 81–168; BP diastolic 40–90; PULSE 58–87; RESP 14–16; TEMP 36.6–37; O2SAT 94–99; BMI 42.4; BMI 37.5
--- NOTE | 2024-08-01 11:06 | RAD_ITS ---
PROCEDURE: PELVIS 1 OR 2 VIEWS 08/01/2024 REASON FOR EXAM: PAIN TECHNIQUE: 1 view(s) of the pelvis. COMPARISON: Same day left femoral radiographs. FINDINGS: Hardware: None. Bones: No acute pelvic fracture. See same day left femoral radiographs for discussion of femoral fracture. Joints: Moderate degenerative changes. Soft tissues: Soft tissues are unremarkable. Other: The visualized bowel loops are normal caliber. RAD/Pelvis 1 or 2 Views IMPRESSION: NO EVIDENCE OF PELVIC FRACTURE. See same day left femur radiographs for discus selam of acute left femoral fracture. Reading Location: [id number]
--- NOTE | 2024-08-01 11:06 | CT_ITS ---
EXAM: BRAIN/HEAD WITHOUT CONTRAST CLINICAL HISTORY: 68 y/o F with HEAD INJURY. COMPARISON: None. TECHNIQUE: Routine CT imaging of the head without IV contrast. Additional multiplanar reformats were obtained. Dose reduction techniques were used including intermediate exposure control (AEC),iterative reconstruction technique, and/or mA and/or KV dose adjustments based on patient's size. FINDINGS: Mild generalized cerebral volume loss with concordant prominence of the ventricles and subarachnoid spaces. Moderate patchy supratentorial white matter hypodensities. The longo-white matter interfaces are otherwise maintained. No acute intracranial hemorrhage or herniation. Mild mucosal thickening of the right maxillary sinus. The orbits, visualized paranasal sinuses and mastoids are otherwise unremarkable. No acute calvarial fracture. Moderate-sized hematoma along the left lateral scalp. CT/Brain/Head without Contrast IMPRESSION: 1. No acute intracranial finding. 2. Moderate-sized hematoma along the left lateral scalp. Reading Location: [id number]
--- NOTE | 2024-08-01 11:06 | CT_ITS ---
PROCEDURE: SPINE CERVICAL WITHOUT CONTRAS 08/01/2024 REASON FOR EXAM: FALL TECHNIQUE: Cervical spine CT without contrast. Coronal and Sagittal reconstruction series were provided. One or more dose reduction techniques were used (e.g., Automated exposure control, adjustment of the mA and/or kV according to patient size, use of iterative reconstruction technique RADIATION DOSE SUMMARY: CTDlvol: 19.49 mGy DLP: 366.29 mGycm COMPARISON: None. FINDINGS: No evidence of acute fracture or dislocation. Vertebral body heights are maintained. Moderate discogenic degenerative changes of the visualized spine. Grade 1 anterolisthesis of C6 on C7. Atherosclerosis is present. The lung apices are clear. CT/Spine Cervical without Contras IMPRESSION: No acute cervical spine fracture. Spondylosis. Spondylolisthesis. Reading Location: [place] [id number]
--- NOTE | 2024-08-01 11:06 | RAD_ITS ---
PROCEDURE: FEMUR MIN 2 VIEWS 08/01/2024 REASON FOR EXAM: PAIN TECHNIQUE: 4 view(s) of the left femur. COMPARISON: Same-day pelvic radiographs. FINDINGS: Bones: Acute, comminuted, angulated and distracted fracture of the left distal femoral diaphysis fracture. Joints: No intra-articular extension into the left knee or hip joint. Prior total left knee arthroplasty. Soft tissues: Soft tissue swelling. RAD/Femur Min 2 Views IMPRESSION: Acute left distal femoral fracture. Reading Location: [id number]
--- NOTE | 2024-08-01 11:19 | EDS_ITS ---
HPI <AARON Minaya - Last Filed: 08/01/24 12:33> History of Present Illness Chief Complaint: Fall Narrative Narrative: 68-year-old female was brought in by EMS after a fall. She remembers driving to [facility] but does not remember much else. She was found at the bottom of the stairs with a scalp hematoma and complained of left hip pain. Her friend who found her states she was awake and alert. She has a history of seizures and takes Depakote but states she has not had a seizure in a long time and she is not sure if that happened today. She has no tongue biting or bladder or bowel incontinence. She reports no recent illness. She had no recent chest pain shortness of breath. No abdominal pain or nausea or vomiting or diarrhea. No black or bloody stools. No urinary symptoms. No blood thinners. PFS <AARON Minaya - Last Filed: 08/01/24 12:33> [facility] Medical History (Updated 08/01/24 @ 12:12 by AARON Minaya) Incontinence Back pain Neck pain Easy bruising Seizures Thyroid disease Diarrhea Chest pain Fatigue Shoulder pain Arthritis Home Medications ?Medication ?Instructions ?Recorded ?Last Taken ?Type divalproex 125 mg tablet,delayed 125 mg PO QHS SEIZURE S 10/14/14 Unknown History release divalproex 250 mg tablet,delayed 250 mg PO 4X/DAY SEIZ URES 10/14/14 09/01/17 05:00 History release fluoxetine 20 mg tablet 20 mg PO DAILY DEPRESSION Unknown History levothyroxine 100 mcg tablet 100 mcg PO DAILY THYROID 10/14/14 09/01/17 05:00 Hi story (Levoxyl) primidone 250 mg tablet 250 mg PO BID SEIZURES 10/1409/01/17 05:00 History acetaminophen 500 mg tablet 1,000 mg (2 x 500 mg) PO Q 8 #90 09/03/17 Unknown Rx tabs metronidazole 500 mg tablet 500 mg PO Q6H #40 tabs Unknown Rx omeprazole 40 mg capsule,delayed 40 mg PO DAILY Unknown History release Saccharomyces boulardii 10 billion 10,000 mmu cells PO BID #60 caps 01/10/23 Unknown Rx cell capsule (Resistance Formula Probiotic) Allergy/AdvReac Type Severity Reaction Status Date / Time No Known Allergies Allergy Verified 08/01/24 10:39 Surgical History (Updated 08/01/24 @ 12:[address] Julius Banuelos MD) History of knee replacement Hx of cholecystectomy Social History Smoking Status: Never smoker ROS <AARON Minaya - Last Filed: 08/01/24 12:33> ROS ED ROS Narrative Constitutional: Negative for fever, chills, malaise. GI: Negative for abdominal pain, nausea, vomiting. : Negative for dysuria, hematuria or frequency. Neuro: Negative for motor/sensory dysfunction. Musc: Positive for left hip pain, trauma. EXAM <AARON Minaya - Last Filed: 08/01/24 12:33> Physical Exam Narrative Exam Narrative: CONST: Patient lying in no acute distress. EYES: Normal inspection. PERRL, EOMI. ENT: No tongue bite, moist mucous membranes. HEAD: Left temporal hematoma. No deformity or crepitus. No abrasions or lacerations. Small red shaffer along the left side of her nose. No raccoon eyes or Lovelace sign, no nasal septal hematoma or hemotympanum, no CSF otorrhea or rhinorrhea. NECK: Normal inspection. No midline spinal tenderness, no step off or crepitus. RESP: No respiratory distress, CTAB. Chest wall nontender. CVS: Regular rate and rhythm, no murmur, no gallop. ABD: Soft and nontender, no guarding or rebound, nondistended. Back: Normal inspection, no midline tenderness. SKIN: Color normal, no rash, warm, dry, intact. EXTREMITIES: Normal appearance of upper extremities, full range of motion, no tenderness, 2+ radial pulses. Pelvis stable: Left leg shortened. Tender over the left hip and mid femur. Healed bilateral knee midline incisions. No tenderness of the knees or lower legs. Chronic symmetric ankle edema. 2+ DP pulses. NEURO: Alert and oriented x 4. PSYCH: Normal affect. Const Vital Signs: 08/01/24 10:35 08/01/24 10:39 08/01/24 12:21 Temperature 98.1 F Temperature Source Oral Pulse Rate 58 L 58 L Respiratory Rate 16 16 Respiratory Effort Normal Non-Labored Respiratory Depth Normal Respiratory Pattern Normal Blood Pressure 155/64 H 126/76 H Blood Pressure Mean 94 92 Pulse Ox 97 97 Oxygen Delivery Method Room Air Room Air Room Air <Dr. Julius Banuelos MD - Last Filed: 08/01/24 12:01> Physical Exam Const Vital Signs: 08/01/24 10:35 08/01/24 10:39 08/01/24 12:21 Temperature 98.1 F Temperature Source Oral Pulse Rate 58 L 58 L Respiratory Rate 16 16 Respiratory Effort Normal Non-Labored Respiratory Depth Normal Respiratory Pattern Normal Blood Pressure 155/64 H 126/76 H Blood Pressure Mean 94 92 Pulse Ox 97 97 Oxygen Delivery Method Room Air Room Air Room Air MDM <AARON Minaya - Last Filed: 08/01/24 12:33> [facility] MDM Narrative Medical decision making narrative: History of from: Patient and friends Differential includes hip or pelvic fracture, femur or knee fracture, contusion Consults: Orthopedics, hospitalist 68-year-old female fell down stairs he had sustained head injury and left lower extremity injury. She does not recall the events and the reason for her fall is unclear. She is awake alert. GCS 15. Vital stable. She has a left scalp hematoma but no other signs of head injury or basilar skull fracture. No C-sp ine tenderness. Normal cardiopulmonary exam. Chest nontender. Abdomen soft nontender. Pelvis stable. She is tender over the left proximal and mid femur. No tenderness of the knee or lower legs. History of bilateral knee replacements. X-rays show a left distal femur fracture. It does not appear to involve the knee replacement. CT brain and cervical spine negative. CBC and BMP are unremarkable. Depakote level is therapeutic. I discussed the case with Dr. Shah who advised getting a CT of the knee for surgical planning and placed in a knee immobilizer. I will discuss the case with hospitalist for admission. I have personally performed a face to face assessment of the patient and have reviewed the LANCE Note. I performed a substantive portion of the visit including all aspects of the following. My perry findings include: History is 68-year-old female history of seizures was found down at [facility] at the bottom of steps. Complaining of left hip/femur pain. Denies recent illnes s. Did strike the left forehead area when she fell. Exam is [68-year-old female sitting in bed. 2 women at bedside. Vital signs are stable afebrile. Pulse ox 97% on room air no hypoxia. H EENT exam pupils round reactive light. She has a hematoma on her left forehead. It is tender. There is no laceration. Scalp otherwise nontender. Neck and C-spine are nontender. Trachea midline. Lungs clear to auscultation bilaterally. Heart regular rhythm rate about 58 no murmur. Chest wall ribs nontender. Abdomen soft nontender. Both upper extremities are nontender normal financial services sales representative strength normal range of motion. Right lower leg nontender normal range of motion normal dorsi plantarflexion. Left lower extremity tender on the proximal third of the femur. Possible femur fracture. Skin intact. Left lateral hip is nontender. Knee has been replaced nontender. Normal dorsi plantarflexion left foot. Normal touch sensation. Normal DP pulse. Left ankle and foot are nontender. Neurologically she is awake and alert. Answering questions following commands.] Medical Decision Making [68-year-old female fell most likely has either a left femur or hip fracture. X-rays are being obtained. Fentanyl for pain. Screening labs will be obtained also CT of her head and neck due to the fall and head injury. She will need to be admitted.] Other additions or changes: [None] Lab Data Labs: Laboratory Results - last 24 hr 08/01/24 11:10 WBC 6.4 RBC 3.86 L Hgb 13.1 Hct 39.0 MCV 101.0 H MCH 33.9 H MCHC 33.6 RDW Std Deviation 48.3 H RDW Coeff of Lucio 13.2 Plt Count 280 MPV 11.8 Immature Gran % (Auto) 0.200 Neut % (Auto) 37.7 L Lymph % (Auto) 48.9 H [place] % (Auto) 10.7 H Eos % (Auto) 2.2 Baso % (Auto) 0.3 Absolute Neuts (auto) 2.4 Absolute Lymphs (auto) 3.12 Nucleated RBC % 0 Sodium 142 Potassium 3.5 Chloride 103 Carbon Dioxide 25.0 Anion Gap 14 BUN 23 H Creatinine 0.73 Estim Creat Clear Calc 68.95 Est GFR (MDRD) Non-Af 89 BUN/Creatinine Ratio 32.0 H Glucose 117 H Calcium 9.6 Valproic Acid 55 Radiography Diagnostic Testing: Clinical Impression(s) from Imaging Studies Brain CT 08/01/24 11:06 IMPRESSION: 1. No acute intracranial finding. 2. Moderate-sized hematoma along the left lateral scalp. Reading Location: [facility] Cervical Spine CT 08/01/24 11:06 IMPRESSION: No acute cervical spine fracture. Spondylosis. Spondylolisthesis. Reading Location: [id number] Femur X-Ray 08/01/24 11:06 IMPRESSION: Acute left distal femoral fracture. Reading Location: [facility] Pelvis X-Ray 08/01/24 11:06 IMPRESSION: NO EVIDENCE OF PELVIC FRACTURE. See same day left femur radiographs for discussion of acute left femoral fracture. Reading Location: [facility] Chest X-Ray 08/01/24 11:45 IMPRESSION: Mild cardiomegaly. Otherwise stable chest radiograph. Reading Location: [facility] ED attending interpretation of left hip and femur show a distal third left femur fracture several inches above the prosthetic knee joint. There is no hip fracture or hip dislocation. There is no pelvis fracture. ED attending interpretation of 1 view chest x-ray shows mild cardiomegaly, no acute infiltrate. EKG Initial EKG: Attestation: I personally reviewed and interpreted this EKG as follows: Interpretation: No Acute Injury Pattern and Sinus Bradycardia Comments: Sinus bradycardia [address] changes No STEMI <Dr. Julius Banuelos MD - Last Filed: 08/01/24 12:01> [facility] Narrative Medical decision making narrative: I have personally performed a face to face assessment of the patient and have reviewed the LANCE Note. I performed a substantive portion of the visit including all aspects of the following. My perry findings include: History is 68-year-old female history of seizures was found down at [facility] at the bottom of steps. Complaining of left hip/femur pain. Denies recent illness. Did strike the left forehead area when she fell. Exam is [68-year-old female sitting in bed. 2 women at bedside. Vital signs are stable afebrile. Pulse ox 97% on room air no hypoxia. H EENT exam pupils round reactive light. She has a hematoma on her left forehead. It is tender. There is no laceration. Scalp otherwise nontender. Neck and C-spine are nontender. Trachea midline. Lungs clear to auscultation bilaterally. Heart regular rhythm rate about 58 no murmur. Chest wall ribs nontender. Abdomen s oft nontender. Both upper extremities are nontender normal financial services sales representative strength normal range of motion. Right lower leg nontender normal range of motion normal dorsi plantarflexion. Left lower extremity tender on the proximal third of the femur. Possible femur fracture. Skin intact. Left lateral hip is nontender. Knee has been replaced nontender. Normal dorsi plantarflexion left foot. Normal touch sensation. Normal DP pulse. Left ankle and foot are nontender. Neurologically she is awake and alert. Answering questions following commands.] Medical Decision Making [68-year-old female fell most likely has either a left femur or hip fracture. X-rays are being obtained. Fentanyl for pain. Screening labs will be obtained also CT of her head and neck due to the fall and head injury. She will need to be admitted.] Other additions or changes: [None] History & Record Review Discussion w/independent historian: Patient and Friend Additional record(s) reviewed:: Prior inpatient record, Prior outpatient record, Prior ED visit and Prior labs Lab Data Attestation: I reviewed the patient's lab results. Lab results narrative: CBC shows a white count of 6. H&H of 13 and 39. Platelets 280. Chemistry shows sodium 142 gap 14. BUN/creatinine 23 and 0.7. Glucose 117. Labs: Laboratory Results - last 24 hr 08/01/24 11:10 WBC 6.4 RBC 3.86 L Hgb 13.1 Hct 39.0 MCV 101.0 H MCH 33.9 H MCHC 33.6 RDW Std Deviation 48.3 H RDW Coeff of Lucio 13.2 Plt Count 280 MPV 11.8 Immature Gran % (Auto) 0.200 Neut % (Auto) 37.7 L Lymph % (Auto) 48.9 H [place] % (Auto) 10.7 H Eos % (Auto) 2.2 Baso % (Auto) 0.3 Absolute Neuts (auto) 2.4 Absolute Lymphs (auto) 3.12 Nucleated RBC % 0 Sodium 142 Potassium 3.5 Chloride 103 Carbon Dioxide 25.0 Anion Gap 14 BUN 23 H Creatinine 0.73 Estim Creat Clear Calc 68.95 Est GFR (MDRD) Non-Af 89 BUN/Creatinine Ratio 32.0 H Glucose 117 H Calcium 9.6 Valproic Acid 55 Radiography Diagnostic Testing: Clinical Impression(s) from Imaging Studies Brain CT 08/01/24 11:06 IMPRESSION: 1. No acute intracranial finding. 2. Moderate-sized hematoma along the left lateral scalp. Reading Location: [facility] Cervical Spine CT 08/01/24 11:06 IMPRESSION: No acute cervical spine fracture. Spondylosis. Spondylolisthesis. Reading Location: [id number] Femur X-Ray 08/01/24 11:06 IMPRESSION: Acute left distal femoral fracture. Reading Location: [facility] Pelvis X-Ray 08/01/24 11:06 IMPRESSION: NO EVIDENCE OF PELVIC FRACTURE. See same day left femur radiographs for discussion of acute left femoral fracture. Reading Location: [facility] Chest X-Ray 08/01/24 11:45 IMPRESSION: Mild cardiomegaly. Otherwise stable chest radiograph. Reading Location: [facility] Left hip and femur show a distal third left femur fracture several inches above the prosthetic knee joint. There is no hip fracture or hip dislocation. There is no pelvis fracture. Pelvis x-ray Discharge Plan Dx/Rx/DC Orders Clinical Impression: Fall, Closed left femoral fracture, Closed head injury, History of bilateral knee replacement, Hematoma of scalp Disposition Disposition: [facility]
[2024-08-01 11:21] LABS: Absolute Lymphocyte Count 3.12 X10^3/uL (0.83-4.51); Absolute Neutrophil Count 2.4 X10^3/uL (2.0-7.7); Basophil# 0.02 X10^3/uL; Basophil% 0.3 % (0-1); Eosinophil# 0.14 X10^3/uL; Eosinophils% 2.2 % (0-5); Hemoglobin 13.1 g/dL (12.0-15.0); Lymphocyte # 3.12 X10^3/ul (0.83-4.51); Lymphocyte % 48.9 % (19-41); Mean Corp Hgb Conc 33.6 g/dL (32-36); Mean Corpuscular Hgb 33.9 pg (27.0-32.0); Mean Platelet Vol. 11.8 fl (6.2-12.0); Monocyte# 0.68 X10^3/uL; Monocyte% 10.7 % (0-10); NRBC Flagged by Analyzer 0 % (0-5); Neutrophil # 2.41 X10^3/uL (2.7-7.7); Neutrophil % 37.7 % (47-70); Platelet Count 280 K/mm3 (150-450); RBC Distribution Width CV 13.2 % (11.6-14.6); RBC Distribution Width SD 48.3 fl (35.1-43.9); Red Blood Count 3.86 M/mm3 (4.2-5.4); White Blood Count 6.4 K/mm3 (4.4-11.0)
--- NOTE | 2024-08-01 11:29 | EKG12_ITS ---
Test Reason : FALL Blood Pressure : */* mmHG Vent. Rate : 59 BPM Atrial Rate : 59 BPM P-R Int : 158 ms QRS Dur : 72 ms QT Int : 460 ms P-R-T Axes : 71 -25 -44 degrees QTcB Int : 455 ms Sinus bradycardia Nonspecific ST and T wave abnormality Abnormal ECG Confirmed by Clark Cooper ([id number]), electronic news gathering editor JADE MOSQUEDA ([id number]) on 08/02/2024 11:00:06 AM Referred By: Confirmed By: Clark Cooper
--- NOTE | 2024-08-01 11:45 | RAD_ITS ---
PROCEDURE: CHEST 1 VIEW 08/01/2024 REASON FOR EXAM: PRE OP TECHNIQUE: Frontal view of the chest. COMPARISON: Chest radiograph 01/28/2020. FINDINGS: Hardware: None. Heart: Heart size is mildly enlarged. Lungs: Bibasilar atelectasis. No focal consolidation, pleural effusion or pneumothorax. Bones: Degenerative changes are identified within the thoracic spine. RAD/Chest 1 View IMPRESSION: Mild cardiomegaly. Otherwise stable chest radiograph. Reading Location: [id number]
[2024-08-01 11:50] LABS: Anion Gap 14 (5-15); BUN 23 mg/dL (4-19); Calcium,Total 9.6 mg/dL (7.6-11.0); Chloride 103 mmol/L (98-108); Creatinine, Serum 0.73 mg/dL (0.70-1.20); EST Glomerular Filtration Rate 89 (>60); Estimated Creatinine Clearance 68.95 ml/min (50-250); Glucose 117 mg/dL (70-99); Potassium 3.5 mmol/L (3.3-5.1); Sodium Level 142 mmol/L (133-145)
[2024-08-01 12:04] LABS: Valproic Acid (Depakene) Level 55 ug/mL (50-100)
--- NOTE | 2024-08-01 12:04 | CT_ITS ---
PROCEDURE: EXTREMITY LOWER WITHOUT CONTRA 08/01/2024 REASON FOR EXAM: LEFT KNEE PAIN TECHNIQUE: Axial CT images of the left lower extremity obtained without intravenous contrast. Coronal and Sagittal reconstruction series were provided. One or more dose reduction techniques were used (e.g., Automated exposure control, adjustment of the mA and/or kV according to patient size, use of iterative reconstruction technique RADIATION DOSE SUMMARY: CTDlvol: 25.0 mGy DLP: 1310 mGycm COMPARISON: Left femur radiographs 08/02/2019 FINDINGS: Postoperative changes from left total knee arthroplasty. There is a comminuted and displaced fracture of the left distal femoral shaft with 35 degrees of apex lateral angulation and 3 cm of foreshortening. The fracture lucency exits at the anterior border of the femoral hardware (sagittal image 64). Chan catheter balloon within the urinary bladder. Remainder of the visualized pelvic contents are unremarkable. CT/Extremity Lower without Contra IMPRESSION: Comminuted and moderately displaced periprosthetic fracture of the left distal femur. Recommend Orthopedic Surgery consultation. Reading Location: [facility]
[2024-08-01] MEDS: Ondansetron 4 MG/2 ML Vial IV (12:20)
[2024-08-01] MEDS: 0.9% Normal Saline (1000mL) 1,000 ML 999 ML IV (12:20)
[2024-08-01] MEDS: Morphine 4 MG/ML Syringe IV (12:20)
--- NOTE | 2024-08-01 12:22 | PCM.HP.STD ---
HPI - General General Date of Admission: 08/01/24 Date of Service: 08/01/24 Chief Complaint: Left hip pain HPI Narrative JUANA LEDEZMA, is a 68 F who was brought to the emergency department after she was found on the bottom of the staircase at change. Patient told the view that she might have fallen however she does not recall the events leading to her fall. Patient was apparently found by a friend. Patient has history of seizure disorder however she denied any seizure activity. She was brought to the emergency department imaging studies demonstrated Acute left distal femoral fracture. Dr. Shah the orthopedic surgeon on-call was contacted patient admitted to regular nursing floor for further management. [facility] Medical History (Updated 08/01/24 @ 12:12 by AARON Minaya) Incontinence Back pain Neck pain Easy bruising Seizures Thyroid disease Diarrhea Chest pain Fatigue Shoulder pain Arthritis Home Medications ?Medication ?Instructions ?Recorded ?Last Taken ?Type divalproex 125 mg tablet,delayed 125 mg PO QHS SEIZURES 10/14/14 Unknown History release divalproex 250 mg tablet,delayed 500 mg PO BID SEIZURES 10/14/14 09/01/17 05:00 History release fluoxetine 20 mg tablet 20 mg PO DAILY DEPRESSION 10/14/14 Unknown History levothyroxine 100 mcg tablet 100 mcg PO DAILY THYROID 10/14/14 09/01/17 05:00 History (Levoxyl) primidone 250 mg tablet 250 mg PO BID SEIZURES 10/14/14 09/01/17 05:00 History acetaminophen 500 mg tablet 1,000 mg (2 x 500 mg) PO Q8 #90 09/03/17 Unknown Rx tabs Saccharomyces boulardii 10 billion 10,000 mmu cells PO BID #60 caps 01/10/23 Unknown Rx cell capsule (Resistance Formula Probiotic) Allergy/AdvReac Type Severity Reaction Status Date / Time No Known Allergies Allergy Verified 08/01/24 10:39 Surgical History (Updated 08/01/24 @ 12:[address] Julius Banuelos MD) History of knee replacement Hx of cholecystectomy Social History Smoking Status: Never smoker ROS ROS Narrative GENERAL: denies fever, chills, night sweats, weight loss, anorexia HEENT: denies headache, sinus congestion, or drainage, dysphagia RESPIRATORY: denies cough, sputum production, shortness of breath, dyspnea on exertion CARDIAC: denies chest pain, palpitations, orthopnea, PND GASTROINTESTINAL: denies abdominal pain, nausea, vomiting, melena, GENITOURINARY: denies dysuria, urgency, frequency, heamaturia EXTREMITY: denies swelling MUSCULOSKELETAL: Left hip pain NEUROLOGIC: denies focal numbness, weakness, tingling HEMATOLOGIC: denies easy bruising and/or hemorrhage INTEGUMENT: denies rashes PSYCHIATRIC: denies suicidal or homicidal ideation Vital Signs Vital Signs Vital Signs: 08/01/24 10:35 08/01/24 10:39 08/01/24 12:21 Temperature 98.1 F Temperature Source Oral Pulse Rate 58 L 58 L Respiratory Rate 16 16 Respiratory Effort Normal Non-Labored Respiratory Depth Normal Respiratory Pattern Normal Blood Pressure 155/64 H 126/76 H Blood Pressure Mean 94 92 Pulse Ox 97 97 Oxygen Delivery Method Room Air Room Air Room Air Weight Weight: 98.628 kg Body Mass Index (BMI) 42.4 Physical Exam Narrative GENERAL: cooperative HEENT: Left temporal hematoma EYES; Anicteric, Normal Conjunctiva NECK; supple, normal thyroid, RESPIRATORY: Diminished to auscultation CARDIOVASCULAR: Regular S1 S2, GI: soft, normoactive bowel sounds, : No Renal angle tenderness; EXTREMITIES: No edema, no clubbing, MUSCULOSKELETAL: Left lower extremity shortened and externally rotated NEURO: Awake; no lateralizing signs. SKIN: No Rash PSYCH; Flat affect Results Lab / Micro Data 08/01/24 11:10 08/01/24 11:10 Labs: Laboratory Results - last 24 hr 08/01/24 11:10: WBC 6.4, RBC 3.86 L, Hgb 13.1, Hct 39.0, MCV 101.0 H, MCH 33.9 H, MCHC 33.6, RDW Std Deviation 48.3 H, RDW Coeff of Lucio 13.2, Plt Count 280, MPV 11.8, Immature Gran % (Auto) 0.200, Neut % (Auto) 37.7 L, Lymph % (Auto) 48.9 H, [place] % (Auto) 10.7 H, Eos % (Auto) 2.2, Baso % (Auto) 0.3, Absolute Neuts (auto) 2.4, Absolute Lymphs (auto) 3.12, Nucleated RBC % 0, Sodium 142, Potassium 3.5, Chloride 103, Carbon Dioxide 25.0, Anion Gap 14, BUN 23 H, Creatinine 0.73, Estim Creat Clear Calc 68.95, Est GFR (MDRD) Non-Af 89, BUN/Creatinine Ratio 32.0 H, Glucose 117 H, Calcium 9.6, Valproic Acid 55 Imaging Radiology Impression Brain CT 08/01/24 11:06 IMPRESSION: 1. No acute intracranial finding. 2. Moderate-sized hematoma along the left lateral scalp. Reading Location: [facility] Femur X-Ray 08/01/24 11:06 IMPRESSION: Acute left distal femoral fracture. Reading Location: [facility] Pelvis X-Ray 08/01/24 11:06 IMPRESSION: NO EVIDENCE OF PELVIC FRACTURE. See same day left femur radiographs for discussion of acute left femoral fracture. Reading Location: [facility] Chest X-Ray 08/01/24 11:45 IMPRESSION: Mild cardiomegaly. Otherwise stable chest radiograph. Reading Location: [facility] Assessment & Plan Assessment/Plan (1) Hematoma of scalp: (2) Closed head injury: PLAN: Plan Patient is a 68-year-old lady admitted following an unwitnessed fall 1. Fall with Acute left distal femoral fracture. ? Event leading to patient's fall unclear. Imaging studies demonstrated acute left distal femoral fracture. Patient has been admitted to regular nursing floor treatment initiated with immobilization, pain management and consultation placed to orthopedic surgery. Plan is for patient to undergo ORIF in a.m. Patient risk for surgical intervention moderate. Did review patient initial diagnostic studies would not recommend any further workup prior to patient intervention 2. Closed head injury ? Following patient for. Patient did develop left scalp hematoma CT of the head obtained on admission did show. No acute intracranial finding. Moderate-sized hematoma along the left lateral scalp. 3. Seizure disorder ? Patient presented with a fall however she was not noted to be incontinent of urine or stool is not clear whether patient had a seizure. Will institute seizure protocol. Plan is to resume patient antiseizure medications after home meds have been reconciled 4. Hypokalemia ? Corrected per protocol repeat BMP ordered in a.m. 5. Hypothyroidism ? Patient is on levothyroxine home dose continued 6. Depression with anxiety ? Patient is on fluoxetine plan is to resume following med reconciliation 6. DVT prophylaxis ? Bilateral SCDs for now with plan to initiate systemic anticoagulation following patient surgical intervention Time spent in the patient's overall evaluation,decision-making process, review of diagnostic data, adjustment of management, discussion with other providers, nursing nursing and ancillary staff involved in patient's care documentation, 75 Minutes Advance planning; did discuss with the patientregarding advanced directives as well as CODE STATUS. Did explain the various scenarios involved ( FULL CODE, DNR CCA, DNR CCA with no intubation, and DNR CC and what each meant) patient elected to be DNR CCA no intubation. Did explain to patient that he is DNR CCA DO NOT INTUBATE will need to be revoked for 24 hours after drain and after surgery. Patient understood that. Order was placed. Time spent on discussion 18 minutes. Charges/Coding Multi Select Codes Visit Charges Visit Charges: 30521 Init Hosp Hospitalists' Procedures Procedures: 07323 Advncd Care Plan 30 Min
[2024-08-01 13:05] LABS: Bacteria 0 SEEN /hpf (None Seen); Red Blood Cells-Urine 0 SEEN /hpf (0-5); Squamous Epithelial Cells - UA 0 SEEN /hpf (5-10); White Blood Cells 0 SEEN /hpf (0-5)
[2024-08-01 13:12] LABS: Color, Urine Yellow (Yellow); Glucose, Dipstick Normal (Normal); Ketone-Dipstick 5 mg/dl (Negative); Leukocyte Esterase-Dipstick Negative /ul (Negative); Nitrite-Dipstick Negative (Negative); Occult Blood-Urine Negative /ul (Negative); Specific Gravity, Urine 1.015 (1.002-1.030); Urine Bilirubin Dipstick Negative (Negative); Urine Clarity Clear (Clear); Urine Urobilinogen Normal (Normal); Urine pH 6.5 (5.0 - 8.0)
[2024-08-01 13:25] LABS: Mucous, Urine 1+ /hpf (<or=2+)
[2024-08-01 13:50] LABS: Protein, Urine (Random) 15.3 mg/dL (0.0-12.0)
[2024-08-01] MEDS: oxyCODONE 5 MG Tablet PO (15:13)
[2024-08-01] MEDS: Acetaminophen 500 MG Tablet 1000 MG PO ×2 (15:15→21:50)
[2024-08-01] MEDS: Potassium Chloride Oral Tablet 20 MEQ PO ×2 (15:15→18:14)
--- NOTE | 2024-08-01 20:06 | CON.PCM.OR_ITS ---
HPI Consult Data Date of Consult: 08/01/24 HPI Narrative Reason for Consultation: Left distal femur periprosthetic fracture HPI Narrative: JUANA LEDEZMA, is a 68 F who presented to [facility] emergency department after she was found by her family at the bottom of a staircase. She believes she caught her foot on some carpeted stairs but does not remember the specifics entirely. She states she did hit her left taoism but denies any headaches, denies loss of consciousness, change in vision or hearing. She was unable to bear weight on her left lower extremity. X-rays in the emergency department revealed a distal femur periprosthetic fracture around a left total knee arthroplasty which was performed by Dr. Zepeda in 2018. She states her knee has been doing very well since surgery and denies any problems with it. She is a community ambulator without assistive device. Denies history of DVT or PE. She takes no blood thinners. Denies any anesthetic complications. She does have a seizure disorder. [facility] Medical History (Updated 08/01/24 @ 20:[address] Collin Shah DO) Incontinence Back pain Neck pain Easy bruising Seizures Thyroid disease Diarrhea Chest pain Fatigue Shoulder pain Arthritis Home Medications ?Medication ?Instructions ?Recorded ?Last Taken ?Type divalproex 125 mg tablet,delayed 125 mg PO QHS SEIZURE S 10/14/14 07/31/24 21:30 History release divalproex 250 mg tablet,delayed 500 mg PO BID SEIZURE S 10/14/14 07/31/24 21:30 History release fluoxetine 20 mg tablet 20 mg PO DAILY DEPRESSION 07/31/24 21:30 History levothyroxine 100 mcg tablet 100 mcg PO DAILY THYROID 10/14/14 08/01/24 06:00 History (Levoxyl) primidone 250 mg tablet 250 mg PO BID SEIZURES 10/1407/31/24 21:30 History Saccharomyces boulardii 10 billion 10,000 mmu cells PO BID supplement 01/10/23 Unknown Rx cell capsule (Resistance Formula #60 caps Probiotic) acetaminophen 500 mg tablet 1,000 mg PO Q8 PRN pain Unknown History Allergy/AdvReac Type Severity Reaction Status Date / Time No Known Allergies Allergy Verified 08/01/24 10:39 Surgical History (Updated 08/01/24 @ 12:[address] uJlius Banuelos MD) History of knee replacement Hx of cholecystectomy Social History Smoking Status: Never smoker ROS ROS Narrative 12 point review of systems obtained, negative unless otherwise noted in HPI. Vital Signs Vital Signs Vital Signs: 08/01/24 10:35 08/01/24 10:39 08/01/24 12:21 Temperature 98.1 F Temperature Source Oral Pulse Rate 58 L 58 L Respiratory Rate 16 16 Respiratory Effort Normal Non-Labored Respiratory Depth Normal Respiratory Pattern Normal Blood Pressure 155/64 H 126/76 H Blood Pressure Mean 94 92 Blood Pressure Source Blood Pressure Position Blood Pressure Location Pulse Ox 97 97 Oxygen Delivery Method Room Air Room Air Room Air 08/01/24 13:00 08/01/24 13:04 08/01/24 14:57 Temperature 98.4 F Temperature Source Temporal Pulse Rate 87 87 62 Respiratory Rate 16 16 14 Respiratory Effort Respiratory Depth Respiratory Pattern Blood Pressure 168/90 H 168/90 H 119/58 L Blood Pressure Mean 116 116 78 Blood Pressure Source Monitor Blood Pressure Position Semi-Fowlers Blood Pressure Location Right Forearm Pulse Ox 99 99 96 Oxygen Delivery Method Room Air 08/01/24 15:03 08/01/24 17:45 Temperature Temperature Source Pulse Rate Respiratory Rate Respiratory Effort Normal Non-Labored Respiratory Depth Normal Respiratory Pattern Normal Blood Pressure Blood Pressure Mean Blood Pressure Source Blood Pressure Position Blood Pressure Location Pulse Ox 98 Oxygen Delivery Method Room Air Room Air Weight Weight: 205 lb 4.006 oz Body Mass Index (BMI) 37.5 Physical Exam Narrative General -A&Ox3, NAD, appears stated age. Vital signs stable, afebrile. Respiratory -normal work of breathing, no intercostal retractions. CV -pulses regular, brisk capillary refill ?4 limbs. Abdomen-soft, nontender, nondistended. No guarding, rigidity, rebound tenderness. Musculoskeletal/neurologic -full range of motion nontender throughout bilateral upper extremities, right lower extremity with full sensation and strength in all dermatomes and myotomes. No midline cervical tenderness. Left lower extremity-knee immobilizer in place without obvious deformity. Knee immobilizer open. Skin is in good repair without lacerations or abrasions. No ecchymosis. Appropriately tender over the distal femur. Range of motion testing deferred. Well-healed midline left knee surgical scar. Nontender tibial shaft and left foot/ankle. Brisk capillary refill. Calf is soft nontender. Sensation intact light touch L3-S1 dermatomes. DF, PF, EHL intact. DP, PT 2+. Pelvis is stable, nontender. Skin is intact without lacerations, abrasions. No ecchymosis noted. Lab / Micro Data 08/01/24 11:10 08/01/24 11:10 Labs: Laboratory Results - last 24 hr 08/01/24 11:10: WBC 6.4, RBC 3.86 L, Hgb 13.1, Hct 39.0, MCV 101.0 H, MCH 33.9 H , MCHC 33.6, RDW Std Deviation 48.3 H, RDW Coeff of Lucio 13.2, Plt Count 280, MPV 11.8, Immature Gran % (Auto) 0.200, Neut % (Auto) 37.7 L, Lymph % (Auto) 48.9 H, Hale % (Auto) 10.7 H, Eos % (Auto) 2.2, Baso % (Auto) 0.3, Absolute Neuts (auto) 2.4, Absolute Lymphs (auto) 3.12, Nucleated RBC % 0, Sodium 142, Potassium 3.5, Chloride 103, Carbon Dioxide 25.0, Anion Gap 14, BUN 23 H, Creatinine 0.73, Estim Creat Clear Calc 68.95, Est GFR (MDRD) Non-Af 89, BUN/Creatinine Ratio 32.0 H, Glucose 117 H, Calcium 9.6, Valproic Acid 55 08/01/24 13:00: Urine Color Yellow, Urine Clarity Clear, Urine pH 6.5, Ur Specific [place] 1.015, Urine Protein TNP, Urine Glucose (UA) Normal, Urine Ketones 5 H, Urine Occult Blood Negative, Urine Nitrite Negative, Urine Bilirubin Negative, Urine Urobilinogen Normal, Ur Leukocyte Esterase Negative, Urine RBC 0 SEEN, Urine WBC 0 SEEN, Ur Squamous Epith Cells 0 SEEN, Urine Bacteria 0 SEEN, Urine Mucus 1+, U Random Total Protein 15.3 H Imaging Radiology Impression Brain CT 08/01/24 11:06 IMPRESSION: 1. No acute intracranial finding. 2. Moderate-sized hematoma along the left lateral scalp. Reading Location: [facility] Cervical Spine CT 08/01/24 11:06 IMPRESSION: No acute cervical spine fracture. Spondylosis. Spondylolisthesis. Reading Location: [id number] Femur X-Ray 08/01/24 11:06 IMPRESSION: Acute left distal femoral fracture. Reading Location: [facility] Pelvis X-Ray 08/01/24 11:06 IMPRESSION: NO EVIDENCE OF PELVIC FRACTURE. See same day left femur radiographs for discussion of acute left femoral fracture. Reading Location: [facility] Chest X-Ray 08/01/24 11:45 IMPRESSION: Mild cardiomegaly. Otherwise stable chest radiograph. Reading Location: [facility] Lower Extremity CT 08/01/24 12:04 IMPRESSION: Comminuted and moderately displaced periprosthetic fracture of the left distal femur. Recommend Orthopedic Surgery consultation. Reading Location: [facility] Assessment & Plan Assessment/Plan (1) Periprosthetic fracture around internal prosthetic knee joint: PLAN: Patient sustained a comminuted left distal femur periprosthetic fracture. - X-rays CT scan reviewed. Implant appears stable. - Recommending surgical intervention in the form of left distal femur open reduction internal fixation versus intramedullary retrograde nailing. Risks, benefits, alternatives to procedure were reviewed with the patient at length and she agreed to proceed. Risks include but are not limited to bleeding, infection, loss of life limb, need for additional surgery, persistent pain, nonhealing bone or wounds, prosthetic joint infection, neurovascular injury, DVT or PE, risk of anesthesia, stiffness, persistent limp or need for assistive device long-term. Patient expressed understanding of these risks and wished to proceed with surgery. Plan to proceed with surgical invention tomorrow when operative time becomes available. - Preoperative medical optimization per primary - Hold anticoagulant until postop - N.p.o. after midnight. Maintenance IV fluids. TXA and Ancef on-call to the OR. - Bedrest. - Chan already in place. - Thank you for this consultation. Please do not hesitate to call if any questions or concerns arise.
[2024-08-01] MEDS: 0.9% Normal Saline (1000mL) 1,000 ML 100 ML IV (20:43)
[2024-08-01] MEDS: 0.9% Saline Lock 10 ML Syringe IV (20:51)
[2024-08-01] MEDS: Divalproex Sodium 125 MG Tablet PO (20:53)
[2024-08-01] MEDS: Primidone 250 MG Tablet PO (20:53)
[2024-08-01] MEDS: Divalproex Sodium 250 MG Tablet 500 MG PO (20:53)
[2024-08-01 21:35] LABS: ALB/GLOB Ratio 1.3 RATIO (0.9-2.4); AST(SGOT) 232 U/L (<=31); Alanine Aminotransfer ALT/SGPT 136 U/L (<=34); Albumin, Serum 3.6 g/dL (3.4-4.8); Alkaline Phosphatase 89 U/L (35-104); Anion Gap 10 (5-15); BUN 23 mg/dL (4-19); BUN/Creat Ratio 32.2 RATIO (10-20); Calcium,Total 8.4 mg/dL (7.6-11.0); Carbon Dioxide 24.2 mmol/L (21.0-32.0); Chloride 105 mmol/L (98-108); Creatinine, Serum 0.72 mg/dL (0.70-1.20); EST Glomerular Filtration Rate 89 (>60); Estimated Creatinine Clearance 69.52 ml/min (50-250); Globulin 2.8 g/dL (2.2-4.2); Glucose 99 mg/dL (70-99); Potassium 3.8 mmol/L (3.3-5.1); Protein, Total 6.4 g/dL (5.9-8.4); Sodium Level 139 mmol/L (133-145); Total Bilirubin 0.33 mg/dL (0.00-1.30)
[2024-08-02] VITALS (18 sets, daily range): BP systolic 101–135; BP diastolic 54–90; PULSE 60–72; RESP 16–18; TEMP 36.2–37.5; O2SAT 90–100; BMI 37.5; BMI 38.3; BMI 38.1
[2024-08-02] MEDS: 0.9% Normal Saline (1000mL) 1,000 ML 100 ML IV ×2 (06:18→18:53)
[2024-08-02 06:20] LABS: Absolute Lymphocyte Count 1.54 X10^3/uL (0.83-4.51); Absolute Neutrophil Count 2.7 X10^3/uL (2.0-7.7); Basophil# 0.02 X10^3/uL; Basophil% 0.4 % (0-1); Eosinophil# 0.04 X10^3/uL; Eosinophils% 0.8 % (0-5); Hematocrit 30.3 % (37-47); Lymphocyte # 1.54 X10^3/ul (0.83-4.51); Lymphocyte % 31.4 % (19-41); Mean Corpuscular Hgb 32.6 pg (27.0-32.0); Mean Corpuscular Volume 98.7 fL (81-99); Mean Platelet Vol. 11.2 fl (6.2-12.0); Monocyte# 0.63 X10^3/uL; Monocyte% 12.9 % (0-10); NRBC Flagged by Analyzer 0 % (0-5); Neutrophil # 2.66 X10^3/uL (2.7-7.7); Neutrophil % 54.3 % (47-70); Platelet Count 213 K/mm3 (150-450); RBC Distribution Width CV 13.2 % (11.6-14.6); Red Blood Count 3.07 M/mm3 (4.2-5.4); White Blood Count 4.9 K/mm3 (4.4-11.0)
[2024-08-02 06:26] LABS: Partial Thromboplast Time 26.6 Seconds (24.1-36.2)
[2024-08-02 06:48] LABS: Anion Gap 8 (5-15); BUN 14 mg/dL (4-19); BUN/Creat Ratio 19.5 RATIO (10-20); Calcium,Total 8.2 mg/dL (7.6-11.0); Chloride 107 mmol/L (98-108); Creatinine, Serum 0.74 mg/dL (0.70-1.20); EST Glomerular Filtration Rate 87 (>60); Estimated Creatinine Clearance 70.14 ml/min (50-250); Glucose 109 mg/dL (70-99); Magnesium 1.9 mg/dL (1.5-2.2); Phosphorus 2.9 mg/dL (2.7-4.5); Potassium 4.4 mmol/L (3.3-5.1); Sodium Level 140 mmol/L (133-145)
--- NOTE | 2024-08-02 07:58 | PN.HOSP_ITS ---
Reason for Visit Reason for Visit: Diagnoses Periprosthetic fracture around other internal prosthetic joint, initial encounter (08/01/24) Contusion of scalp, initial encounter (08/01/24) Unspecified injury of head, initial encounter (08/01/24) Unspecified fracture of left femur, initial encounter for closed fracture (08/01/24) Presence of unspecified artificial knee joint (08/01/24) Subjective Subjective Patient admitted with for with left distal femur fracture. Patient scheduled to undergo ORIF Objective Data Objective Data Vital Signs: Vital Signs Temp Pulse Resp BP Pulse Ox O2 Del Method 98.5 F 61 16 101/54 L 95 Room Air 08/02/24 02:20 08/02/24 02:20 08/02/24 02:20 08/02/24 02:20 08/02/24 07:40 08/02/24 07:40 Oxygen Delivery Method Room Air Weight: 94.6 kg Body Mass Index (BMI) 38.3 Intake & Output: Intake and Output for Last 24 Hours 07/31/24 08/01/24 08/02/24 23:59 23:59 23:59 Intake Total 1480 / 1480 958.33 / 958.33 Output Total 350 / 900 1999 / 1999 Balance 1130 / 580 -1041.67 / -1041.67 Lab / Micro Data 08/02/24 06:04 08/02/24 06:04 Labs: Laboratory Results - last 24 hr 08/01/24 11:10: WBC 6.4, RBC 3.86 L, Hgb 13.1, Hct 39.0, MCV 101.0 H, MCH 33.9 H , MCHC 33.6, RDW Std Deviation 48.3 H, RDW Coeff of Lucio 13.2, Plt Count 280, MPV 11.8, Immature Gran % (Auto) 0.200, Neut % (Auto) 37.7 L, Lymph % (Auto) 48.9 H, [place] % (Auto) 10.7 H, Eos % (Auto) 2.2, Baso % (Auto) 0.3, Absolute Neuts (auto) 2.4, Absolute Lymphs (auto) 3.12, Nucleated RBC % 0, Sodium 142, Potassium 3.5, Chloride 103, Carbon Dioxide 25.0, Anion Gap 14, BUN 23 H, Creatinine 0.73, Estim Creat Clear Calc 68.95, Est GFR (MDRD) Non-Af 89, BUN/Creatinine Ratio 32.0 H, Glucose 117 H, Calcium 9.6, TSH 1.670, Valproic Acid 55 08/01/24 13:00: Urine Color Yellow, Urine Clarity Clear, Urine pH 6.5, Ur Specific [place] 1.015, Urine Protein TNP, Urine Glucose (UA) Normal, Urine Ketones 5 H, Urine Occult Blood Negative, Urine Nitrite Negative, Urine Bilirubin Negative, Urine Urobilinogen Normal, Ur Leukocyte Esterase Negative, Urine RBC 0 SEEN, Urine WBC 0 SEEN, Ur Squamous Epith Cells 0 SEEN, Urine Bacteria 0 SEEN, Urine Mucus 1+, U Random Total Protein 15.3 H 08/01/24 20:55: Sodium 139, Potassium 3.8, Chloride 105, Carbon Dioxide 24.2, Anion Gap 10, BUN 23 H, Creatinine 0.72, Estim Creat Clear Calc 69.52, Est GFR (MDRD) Non-Af 89, BUN/Creatinine Ratio 32.2 H, Glucose 99, Calcium 8.4, Total Bilirubin 0.33, AST 232 H, ALT 136 H, Alkaline Phosphatase 89, Total Protein 6.4, Albumin 3.6, Globulin 2.8, Albumin/Globulin Ratio 1.3 08/02/24 06:04: WBC 4.9, RBC 3.07 L, Hgb 10.0 L, Hct 30.3 L, MCV 98.7, MCH 32.6 H, MCHC 33.0, RDW Std Deviation 47.0 H, RDW Coeff of Lucio 13.2, Plt Count 213, MPV 11.2, Immature Gran % (Auto) 0.200, Neut % (Auto) 54.3, Lymph % (Auto) 31.4, [place] % (Auto) 12.9 H, Eos % (Auto) 0.8, Baso % (Auto) 0.4, Absolute Neuts (auto) 2.7, Absolute Lymphs (auto) 1.54, Nucleated RBC % 0, APTT 26.6, Sodium 140, Potassium 4.4, Chloride 107, Carbon Dioxide 25.0, Anion Gap 8, BUN 14, Creatinine 0.74, Estim Creat Clear Calc 70.14, Est GFR (MDRD) Non-Af 87, BUN/Creatinine Ratio 19.5, Glucose 109 H, Calcium 8.2, Phosphorus 2.9, Magnesium 1.9, Blood Type O NEGATIVE, Antibody Screen NEGATIVE Radiography Diagnostic Testing: Radiology Impression Brain CT 08/01/24 11:06 IMPRESSION: 1. No acute intracranial finding. 2. Moderate-sized hematoma along the left lateral scalp. Reading Location: [facility] Cervical Spine CT 08/01/24 11:06 IMPRESSION: No acute cervical spine fracture. Spondylosis. Spondylolisthesis. Reading Location: [id number] Femur X-Ray 08/01/24 11:06 IMPRESSION: Acute left distal femoral fracture. Reading Location: [facility] Pelvis X-Ray 08/01/24 11:06 IMPRESSION: NO EVIDENCE OF PELVIC FRACTURE. See same day left femur radiographs for discussion of acute left femoral fracture. Reading Location: [facility] Chest X-Ray 08/01/24 11:45 IMPRESSION: Mild cardiomegaly. Otherwise stable chest radiograph. Reading Location: [facility] Lower Extremity CT 08/01/24 12:04 IMPRESSION: Comminuted and moderately displaced periprosthetic fracture of the left distal femur. Recommend Orthopedic Surgery consultation. Reading Location: [facility] Physical Exam Narrative GENERAL: cooperative HEENT: Left temporal hematoma EYES; Anicteric, Normal Conjunctiva NECK; supple, normal thyroid, RESPIRATORY: Diminished to auscultation CARDIOVASCULAR: Regular S1 S2, GI: soft, normoactive bowel sounds, : No Renal angle tenderness; EXTREMITIES: No edema, no clubbing, MUSCULOSKELETAL: Left lower extremity shortened and externally rotated NEURO: Awake; no lateralizing signs. SKIN: No Rash PSYCH; Flat affect Assessment & Plan Assessment/Plan (1) Hematoma of scalp: (2) Closed head injury: PLAN: Plan Patient is a 68-year-old lady admitted following an unwitnessed fall 1. Fall with Acute left distal femoral fracture. ? Event leading to patient's fall unclear. Imaging studies demonstrated acute left distal femoral fracture. Patient has been admitted to regular nursing floor treatment initiated with immobilization, pain management and consultation placed to orthopedic surgery. Plan is for patient to undergo ORIF in a.m. Patient risk for surgical intervention moderate. Did review patient initial diagnostic studies would not recommend any further workup prior to patient intervention 2. Closed head injury ? Following patient for. Patient did develop left scalp hematoma CT of the head obtained on admission did show. No acute intracranial finding. Moderate-sized hematoma along the left lateral scalp. 3. Seizure disorder ? Patient presented with a fall however she was not noted to be incontinent of urine or stool is not clear whether patient had a seizure. Will institute seizure protocol. Plan is to resume patient antiseizure medications after home meds have been reconciled 4. Hypokalemia ? Corrected per protocol repeat BMP ordered in a.m. 5. Hypothyroidism ? Patient is on levothyroxine home dose continued 6. Depression with anxiety ? Patient is on fluoxetine plan is to resume following med reconciliation 7. Anemia ? Due to combination of anemia of chronic disorder as well as suspected acute blood loss anemia following patient's femur fracture. Requested for H&H and patient was typed and screened for 2 unit PRBC 8. Elevated transaminase ?? Drug effect from patient antiseizure medication ordered renal ultrasound for subsequent eval 9. DVT prophylaxis ? Bilateral SCDs for now with plan to initiate systemic anticoagulation following patient surgical intervention ? Time spent in the patient's overall evaluation,decision-making process, review of diagnostic data, adjustment of management, discussion with other providers, nursing nursing and ancillary staff involved in patient's care documentation, 52 Minutes Charges/Coding Visit Charges Inpatient E&M: 29210 [facility] Hosp L3
--- NOTE | 2024-08-02 08:02 | US_ITS ---
PROCEDURE: ABDOMEN LIMITED 08/02/2024 REASON FOR EXAM: ACUTE TRANSAMINITIS TECHNIQUE: Complete abdominal ultrasound saunders-scale images with color doppler. PATIENT PREPARATION: Per protocol COMPARISON: CT dated 01/28/2020. FINDINGS: Liver: 15.0 cm sagittally. No intrahepatic ductal dilatation. Hepatopetal blood flow. Gallbladder: Surgically absent. Common bile duct: 0.4 cm in diameter. . Pancreas: Unremarkable. No ductal dilatation. Kidneys: Right kidney: Size measures 9.0 x 5.3 x 4.4 cm. Cortex measures 1.5 cm. US/Abdomen Limited IMPRESSION: Status post cholecystectomy. No abnormalities involving the liver. Unremarkable gallbladder, pancreas, and right kidney. Reading Location: [place] [id number]
[2024-08-02] MEDS: Divalproex Sodium 250 MG Tablet 500 MG PO ×2 (09:13→20:49)
[2024-08-02] MEDS: 0.9% Saline Lock 10 ML Syringe IV (11:31)
[2024-08-02] MEDS: Lactated Ringers 1,000 ML 15 ML IV (12:30)
--- NOTE | 2024-08-02 13:10 | CASEMGMT ---
RENATA CM to pt room at this time for assessment. Pt is currently off of the floor. CM to follow.
--- NOTE | 2024-08-02 13:22 | PRE.ANES_ITS ---
ASA Classification* ASA Classification ASA Classification: 3 (Seizure disorder, hypokalemia, hypothyroidism, dep/anx, anemia of chronic disorder, BMI 38 ) Assessment & Plan Anesthesia* Anesthesia Assessment Anesthesia Assessment: Discussed sedation and/or anesthesia options, risks, benefits, and alternatives with patient/parents/legal guardian/POA. Questions invited. The patient/parents/legal guardian/POA seems to understand and agrees to proceed with anesthesia plan. Reviewed the physical assessment, medical history, allergy history and patient home medications list prior to surgery/procedure/anesthetic and documented any changes. Performed airway and anesthesia risk assessments. Anesthesia Type Anesthesia Type: General History Source History Obtained from:: Patient and Chart Anesthesia Focused Assessment* Temperature: 99.3 F Pulse Rate: 67 Blood Pressure: 105/90 Respiratory Rate: 18 Pulse Ox: 97 Oxygen Delivery Method: Room Air Airway Assessment Mouth opens: >3 cm Mallampati Score: II Teeth Condition: Intact Neck Range of motion (ROM): Full ROM Focused Labs Anesthesia Preop lab: CBC WBC 4.9 K/mm3 (4.4-11.0) 08/02/24 06:04 08/02/24 RBC 3.07 M/mm3 (4.2-5.4) L 08/02/24 06:04 08/02/24 Hgb 10.0 g/dL (12.0-15.0) L 08/02/24 06:04 5 Hct 30.3 % (37-47) L 08/02/24 06:04 08/02/24 Plt Count 213 K/mm3 (150-450) 08/02/24 06:04 08/02/24 CHEMISTRY Potassium 4.4 mmol/L (3.3-5.1) 08/02/24 06:04 08/02/24 Sodium 140 mmol/L (133-145) 08/02/24 06:04 08/02/24 Magnesium 1.9 mg/dL (1.5-2.2) 08/02/24 06:04 08/02/24 Phosphorus 2.9 mg/dL (2.7-4.5) 08/02/24 06:04 08/02/24 BUN 14 mg/dL (4-19) 08/02/24 06:04 08/02/24 Creatinine 0.74 mg/dL (0.70-1.20) 08/02/24 06:04 08/02/24 Glucose 109 mg/dL (70-99) H 08/02/24 06:04 08/02/24 TSH 1.670 uIU/mL (0.300-4.200) 08/01/24 11:10 06/0 03/27 COAG PT 13.9 SECONDS (11.7-14.9) 08/27/17 09:25 Pre-Assessment Diagnosis/Proposed Procedure Planned Operative Procedure(s): ORIF (L) for distal femur fx Anesthesia History Anesthesia History - communications director: Anesthesia History - communications director Hx Hospitalization No 01/29/20 13:21 Any Problems With Anesthesia No 08/01/24 20:09 Cholinesterase deficiency No 08/01/24 20:09 You/Your Family Experience No 08/01/24 20:09 fever (hyperthermia) with Relationship Recent Exposure to Contagious No 08/01/24 20:09 Disease Does patient have nerve No 08/01/24 20:09 stimulator Patient instructed to have No 08/01/24 20:09 device shut off --Does patient have Pacemaker No 08/02/24 12:30 or ICD? When Was Last Pacemaker Check QUESTION #4 FULL TEXT: You/Your Family Experience fever (hyperthermia) with Anesthesia Last Oral Intake Last Oral intake: Last Oral Intake NPO since 17:30 08/02/24 12:30 Meds taken in AM with sips of water? Meds patient instructed to take am of surgery PONV PONV - communications director: PONV - communications director Female HX of Motion Sickness HX of N/V After Surgery Non-Smoker Duration of Surgery greater than 60 minutes Number of Risk Factors PONV Score Height & Weight Height & Weight: Anesthesia: Height & Weight Height 5 ft 2 in 08/02/24 12:30 Weight: 94.6 kg 08/02/24 12:30 Body Mass Index (BMI) 38.1 08/02/24 12:30 Respiratory Assessment Respiratory Assessment - communications director: Respiratory Tract Infection Hx - communications director Hx Respiratory Tract Infection No 08/01/24 20:09 STOP Sleep Apnea STOP Sleep Apnea - communications director: STOP Sleep Apnea - communications director Hx Hypertension No 08/01/24 13:37 Hx Sleep Apnea No 08/01/24 13:37 CPAP No 09/01/17 10:09 BIPAP No 08/27/17 08:44 Do you snore loudly (louder Yes 08/01/24 13:37 than talking or can be heard Do you often feel tired/ No 08/01/24 13:37 fatigued/ sleepy during daytime? Has anyone observed you stop No 08/01/24 13:37 breathing during sleep? STOP Results Negative 08/01/24 13:37 QUESTION #5 FULL TEXT : Do you snore loudly (louder than talking or can be heard through closed doors)? Tobacco Use History Tobacco Use History - communications director: Tobacco Use History - communications director Tobacco Use Smoking Status Never smoker 08/01/24 13:37 Hx Tobacco Use No 08/01/24 13:37 Years Smoking Packs Smoked per Day Smoking Cessation Date was within the last 15 years Hx Smoking Cessation Date Hx Smoking Cessation Counseling Hematologic Medial History Hematologic Hx - communications director: Hematologic Medical Hx - kettle tender Hx of Blood Transfusion Yes 08/01/24 13:37 Hx of Transfusion in last 3 No 08/01/24 13:37 Months Date of Last Transfusion (if within last 3 months) Ever experience any problems No 08/01/24 13:37 with transfusion(s)? Specify any problems Hx of Preganancy in last 3 No 08/01/24 13:37 Months Nurse Filling Out Transfusion [email or web address] 08/01/24 13:37 & Questions: Date: 08/01/24 08/01/24 13:37 Time: 13:42 08/01/24 13:37 Patient unable to answer at this time (ie. confused, unrespo /Reproduction History /Reproductive History - communications director: /Reproductive Hx- communications director Hx Now No 08/01/24 20:09 Gestational Age (in weeks): EDC: Hx Hx Para Hx Section SAB No 08/01/24 20:09 Active Medications Active Medications: Current Medications Generic Name Dose Route Start Last Admin Trade Name Freq PRN Reason Stop Dose Admin Acetaminophen 1,000 mg 08/01/24 14:00 08/02/24 06:19 Acetaminophen 500 Mg Tablet PO Not Given Q8 YULY Al Hydroxide/Mg Hydroxide 30 ml 08/01/24 13:36 Mag Hydrox/Al Hydrox/Simeth 30 Ml Udc PO Q6H PRN PRN Gastric Burning Albuterol Sulfate 2.5 mg 08/01/24 13:36 Albuterol 2.5 Mg/3 Ml Vial.Neb. INHALATION Q2H PRN PRN SOB &/OR WHEEZING Divalproex Sodium 500 mg 08/01/24 22:00 08/02/24 09:13 Divalproex Sodium 250 Mg Tablet PO 500 mg BID YULY Administration Divalproex Sodium 125 mg 08/01/24 22:00 08/01/24 20:53 Divalproex Sodium 125 Mg Tablet PO 125 mg QHS YULY Administration Fluoxetine HCl 20 mg 08/02/24 10:00 08/02/24 09:11 Fluoxetine 20 Mg Capsule PO Not Given DAILY YULY Guaifenesin 20 ml 08/01/24 13:36 Guaifenesin 10 Ml Udc (200mg/10ml) PO Q4H PRN PRN COUGH Hydromorphone HCl 0.5 - 1 mg 08/01/24 13:36 Hydromorphone 1 Mg/Ml Syringe IV Q3H PRN PRN Pain Score 6-10 Sodium Chloride 1,000 mls @ 100 mls/hr 08/01/24 20:25 08/02/24 11:31 IV 100 mls/hr .Q10H YULY Infusion Sodium Chloride 250 mls @ 15 mls/hr 08/01/24 20:48 IV .[id number] PRN Saline Flush Sodium Chloride 250 mls @ 15 mls/hr 08/01/24 20:48 IV .[id number] PRN Additional IVPB Infusion Lactated Ringer's 1,000 mls @ 15 mls/hr 08/02/24 12:30 08/02/24 12:30 IV 15 mls/hr .Q48H YULY Administration Levothyroxine Sodium 100 mcg 08/02/24 06:00 08/02/24 06:19 Levothyroxine 100 Mcg Tablet PO Not Given DAILY@0600 YULY Melatonin 3 mg 08/01/24 13:36 Melatonin 3 Mg Tablet PO QHS PRN PRN INSOMNIA Nitroglycerin 0.4 mg 08/01/24 13:36 Nitroglycerin (Inpatient Use) 0.4 Mg Tab.Subl SL Q5M PRN CARDIAC/CHEST PAIN Ondansetron HCl 4 mg 08/01/24 13:36 Ondansetron 4 Mg/2 Ml Vial IV Q8H PRN PRN NAUSEA/VOMITING Oxycodone HCl 5 mg 08/01/24 13:36 08/01/24 15:13 Oxycodone 5 Mg Tablet PO 5 mg Q4H PRN PRN Administration Pain Score 4-10 Potassium Chloride 20 meq 08/01/24 13:36 08/02/24 09:10 Potassium Chloride Oral Tablet 20 Meq PO Not Given BIDCM YULY Primidone 250 mg 08/01/24 22:00 08/02/24 09:11 Primidone 250 Mg Tablet PO Not Given BID YULY Senna/Docusate Sodium 2 tablet 08/01/24 13:36 Senna/Docusate Sodium 1 Tablet PO BID PRN PRN Constipation Sodium Chloride 10 - 40 ml 08/01/24 20:48 08/02/24 11:31 0.9% Saline Lock 10 Ml Syringe IV 10 ml UD PRN Administration SALINE FLUSH COUNTS INCLUDE 234 BEDS AT THE [facility] Medical History (Updated 08/01/24 @ 20:[address] Collin Shah DO) Incontinence Back pain Neck pain Easy bruising Seizures Thyroid disease Diarrhea Chest pain Fatigue Shoulder pain Arthritis Home Medications ?Medication ?Instructions ?Recorded ?Last Taken ?Type divalproex 125 mg tablet,delayed 125 mg PO QHS SEIZURE S 10/14/14 07/31/24 21:30 History release divalproex 250 mg tablet,delayed 500 mg PO BID SEIZURE S 10/14/14 07/31/24 21:30 History release fluoxetine 20 mg tablet 20 mg PO DAILY DEPRESSION 07/31/24 21:30 History levothyroxine 100 mcg tablet 100 mcg PO DAILY THYROID 10/14/14 08/01/24 06:00 History (Levoxyl) primidone 250 mg tablet 250 mg PO BID SEIZURES 10/1407/31/24 21:30 History Saccharomyces boulardii 10 billion 10,000 mmu cells PO BID supplement 01/10/23 Unknown Rx cell capsule (Resistance Formula #60 caps Probiotic) acetaminophen 500 mg tablet 1,000 mg PO Q8 PRN pain Unknown History Allergy/AdvReac Type Severity Reaction Status Date / Time No Known Allergies Allergy Verified 08/01/24 10:39 Surgical History (Updated 08/01/24 @ 12:[address] Julius Banuelos MD) History of knee replacement Hx of cholecystectomy Social History Smoking Status: Never smoker Review of Systems (Anesthesia) ROS Narrative System reviewed and no additional complaints, except as documented. Physical Exam Const alert, oriented x3 and average body habitus Resp normal respiratory effort, normal air movement and clear to auscultation bilaterally Cardio regular rate, regular rhythm, no murmurs and diaphoretic
[2024-08-02] MEDS: Cefazolin 2 GM in 0.9% Normal Saline (100mL Bag) 100 ML IV ×2 (13:41→20:47)
--- NOTE | 2024-08-02 13:43 | CASEMGMT ---
Discharge Planning A list of SNF providers including quality and resource use data and consistent with the patient's preferred geographic region, medical needs, and insurance network was created in [employer] Guide.? This list was provided to the SW. Caitie Brown Discharge Planning Asst.
[2024-08-02] MEDS: TRANEXAMIC ACID 1,000 MG in 0.9% Normal Saline (100mL Bag) 100 ML 440 MG IV (13:50)
--- NOTE | 2024-08-02 14:00 | RAD_ITS ---
PROCEDURE: LEFT FEMUR WITH MOBILE C-ARM IN THE OPERATING ROOM 08/02/2024 REASON FOR EXAM: DISTAL FEMUR FX REPAIR Patient found at the bottom of the basement stairwell at [facility]. Can not remember a fall. Pain in left thigh. TECHNIQUE: MULTIPLE IMAGE (S) of the LEFT femur. COMPARISON: EARLIER STUDY DATED 08/01/2024. FINDINGS: An intramedullary tatiana has been inserted through the comminuted fracture fragments of the distal femoral diametaphysis. The fracture fragments are in good alignment. Left total knee arthroplasty is redemonstrated. Surgical instrumentation projects over the site of internal fixation on a few images. RAD/Femur Min 2 Views IMPRESSION: Satisfactory internal fixation of comminuted left distal femoral fracture as de tailed above. Fluoroscopy: 82.6 sec Dose: 12.20 mGy Reading Location: [place] [id number]
--- NOTE | 2024-08-02 16:47 | PCM.POST.ANE ---
Anesthesia: Postop Eval I Current Vital Signs Temperature: 98.8 F Pulse Rate: 71 Blood Pressure: 129/68 Respiratory Rate: 16 Pulse Ox: 93 Oxygen Delivery Method: Nasal Cannula Oxygen Flow Rate (L/min): 3 Assessment Airway patent: Yes Spontaneous unlabored respirations: Yes Mental status: Awake nausea: No Vomiting: No Anesthesia Complication: No Fluid Hydration Crystalloid volume administer (ml): 1,500 Total IV fluid infused: 1,500 Progress Note Anesthesia document: Postop Eval 1 completed: Yes
--- NOTE | 2024-08-02 16:56 | PCM.OPRPT ---
Operative Report (Standard) Operative Information Date of Procedure: 08/02/24 Pre-Operative Diagnosis: Left distal femur periprosthetic fracture Post-Operative Diagnosis: Left distal femur periprosthetic fracture Surgery/Procedure Performed: Left distal femur retrograde nailing sand operator: Yes Talent Development Consultant: Alysia Bronson Tasks completed by first officer and flight instructor: Opening & closing, Implanting device and Retracting Additional acute care nursing assistant?: No Type of Anesthesia: General RN Documented Start/Stop Times: Operation Date: 08/02/24 08:00 Case Time Into Pre-Op 08/02/24 12:16 Anesthesia Start 08/02/24 13:35 Into Room 08/02/24 13:35 Procedure Start 08/02/24 14:03 Procedure End 08/02/24 16:34 Anesthesia End 08/02/24 16:41 Out of Room 08/02/24 16:41 Procedure Start Time: 14:03 Procedure Stop Time: 16:34 Select all DRAINS/GRAFTS/IMPLANTS that apply: Implanted device Implanted device details: Withams T2 retrograde 360 x 10 mm intramedullary femur nail, interlocking screws x 6, D[place]-Miles cables x 2 Estimated Blood Loss: 200 cc Specimen collected: No Description of surgery: Patient was identified in the preoperative holding area by name, medical record number, and date of . The operative extremity was marked. All questions were answered to the patient's satisfaction. At time of the procedure, patient brought the operative suite positioned supine on a standard operating table. General anesthesia was induced and LMA placed. Left lower extremity was then prepared for surgery. All bony prominences were well-padded. Bump was placed under the patient's left hip. We prepped and draped the left lower extremity in normal, sterile orthopedic fashion. A timeout was called and we confirm the side, site, and operation to be performed. No concerns were voiced and we elected to proceed with surgery. 2 g Ancef and 1 g IV TXA was administered prior to incision anesthesia staff. I then brought in fluoroscopy. Close reduction was attempted and it appeared to be amenable to retrograde nailing however significant displacement was what I felt unacceptable. I made the decision to open reduce the fracture. Lateral approach to the distal femur was made in standard fashion centered over the prominent butterfly fragment. Full-thickness skin flaps were developed down to the IT band. IT band was then opened in line with the incision. The vastus lateralis was elevated from the lateral muscular septum. Fracture site was encountered. Hematoma was debrided. Near-anatomic reduction was achieved with combination of longitudinal traction and bone reduction forceps. 2 cerclage cables were placed around the fracture site. These were left tensioned and then crimped and cut at the end of the case. Near-anatomic reduction was achieved. I then proceeded with retrograde nailing in standard fashion. Prior total knee incision was utilized. The central portion of the incision was opened. Medial parapatellar arthrotomy was then opened and the patella retracted laterally. Hemarthrosis was encountered, otherwise the total knee implant looked pristine. I placed the starting pin 2 to 3 mm posterior to the anteriormost portion of the intercondylar notch. This corresponded to the anterior margin of the Blumensaat's line. I ensured proper trajectory on orthogonal fluoroscopy. Opening reamer was then used to open the notch. Ball-tipped guidewire was placed. We measured our length of our nail to the lesser trochanter of 360 mm. Sequential reaming was performed to a final diameter of 11.5 mm. We opened our nail on the back table and assembled it. Nail was impacted to appropriate depth. Targeting guide was assembled. 4 bicortical interlocking screws were then placed in standard fashion. Proximal interlocking screws were then placed via a 2 cm longitudinal incision along the anterior hip utilizing the targeting guide. These were drilled and placed in standard fashion with excellent purchase. Orthogonal fluoroscopy confirmed appropriate placement and sizing of implants. Wounds were irrigated with copious amount of normal saline solution. Arthrotomy was then closed with #1 strata fix, as well as the IT band and the lateral incision. Deeper fatty layers were closed in interrupted [id number] fashion with 0 Vicryl suture. Dermis of the incisions were closed with interrupted buried 2-0 Vicryl intradermal stitches. Skin was finally reapproximated with glenn. Lateral incision was anesthetized with 20 cc quarter percent bupivacaine with epinephrine. Plan for postoperative femoral nerve block. Bulky sterile compression dressings were applied. Patient was awakened from anesthesia and safely extubated in the operative suite. She tolerated procedure well without apparent complication. Need for skilled acute care nursing assistant: Alysia Bronson PA-C was critical to the outcome of the case. During the course of the procedure the physician acute care nursing assistant played a vital role. Her intimate knowledge of my steps in the procedure aided in safe and expedient completion of the procedure. The PA played a vital role in positioning particularly in obtaining the appropriate positioning. The PA was also vital in the retraction of soft tissues during the exposure and protecting vital structures. The PA was also vital and obtaining fracture reduction and assisting with hardware placement. She also played a vital role in closure and dressing application with my direct supervision. Postoperative plan: Transfer back to [facility] under care of hospitalist Touchdown weightbearing left lower extremity times at least 2 weeks, plan to advance weightbearing in 2 weeks if x-ray stable. Follow-up in 2 weeks with x-rays Staple removal in 2 weeks Multimodal pain management oxycodone Tylenol Lovenox 40 mg subcu daily x 4 weeks postoperatively, beginning postoperative day #1 Prophylactic antibiotics x 7 days postoperatively due to revision and elevated BMI Surgical Findings: Comminuted distal femur fracture about a left total knee arthroplasty. Stable following final fixation. Complications Complications: No Admit VTE Documentation VTE Present on Admission: No VTE Mechan Device Prophylaxis: SCD's VTE Pharm Prophylaxis ordered?: Yes
--- NOTE | 2024-08-02 17:09 | PCM.POSTANE2 ---
Anesthesia Postop Eval I Sum Postop Eval Completion status Anesthesia document: Postop Eval 1 completed: Yes Anesthesia Postop Eval I Summary Anesthesia Postop Eval I Summary: Anesthesia Postop Eval I: Assessment Summary Airway patent Yes 08/02/24 16:48 [email or web address] Spontaneous unlabored Yes 08/02/24 16:48 [email or web address] respirations Mental status Awake 08/02/24 16:48 [email or web address] nausea No 08/02/24 16:48 [email or web address] Vomiting No 08/02/24 16:48 [email or web address] Anesthesia Postop Eval I: Fluid Summary Crystalloid volume administer 1,500 08/02/24 16:48 [email or web address] (ml) Colloids volume administered ( ml) Blood Product volume administered (ml) Total IV fluid infused 1,500 08/02/24 16:48 [email or web address] Anesthesia Postop Eval I: Summary Notes Anesthesia Complication No 08/02/24 16:48 [email or web address] Anesthesia Complication Comment: Post-operative progress note Anesthesia: Postop Eval II Evaluation Mental status: Awake Pain Level: 0 nausea: No Vomiting: No Complications Anesthesia Complication: No
[2024-08-02] MEDS: Divalproex Sodium 125 MG Tablet PO (20:48)
[2024-08-02] MEDS: Primidone 250 MG Tablet PO (20:50)
[2024-08-02] MEDS: Acetaminophen 500 MG Tablet 1000 MG PO (20:50)
[2024-08-03] MEDS: oxyCODONE 5 MG Tablet PO ×2 (03:03→21:28)
[2024-08-03 03:12] VITALS: BP 128/66; PULSE 85; RESP 16; TEMP 36.3; O2SAT 100
[2024-08-03] MEDS: Cefazolin 2 GM in 0.9% Normal Saline (100mL Bag) 100 ML IV ×2 (04:36→13:17)
[2024-08-03 05:21] VITALS: BMI 38.6
[2024-08-03] MEDS: Levothyroxine 100 MCG Tablet PO (05:52)
[2024-08-03] MEDS: Acetaminophen 500 MG Tablet 1000 MG PO ×3 (05:52→21:29)
[2024-08-03] MEDS: Enoxaparin 40 MG/0.4 ML Syringe SC (05:53)
[2024-08-03 06:57] LABS: Absolute Lymphocyte Count 1.38 X10^3/uL (0.83-4.51); Absolute Neutrophil Count 6.4 X10^3/uL (2.0-7.7); Basophil# 0.03 X10^3/uL; Basophil% 0.3 % (0-1); Hematocrit 28.5 % (37-47); Hemoglobin 9.4 g/dL (12.0-15.0); Lymphocyte # 1.38 X10^3/ul (0.83-4.51); Lymphocyte % 15.6 % (19-41); Mean Corpuscular Hgb 33.6 pg (27.0-32.0); Mean Corpuscular Volume 101.8 fL (81-99); Monocyte# 0.98 X10^3/uL; Monocyte% 11.1 % (0-10); NRBC Flagged by Analyzer 0 % (0-5); Neutrophil # 6.37 X10^3/uL (2.7-7.7); Neutrophil % 72.2 % (47-70); Platelet Count 119 K/mm3 (150-450); RBC Distribution Width CV 13.2 % (11.6-14.6); RBC Distribution Width SD 48.7 fl (35.1-43.9); White Blood Count 8.8 K/mm3 (4.4-11.0)
[2024-08-03 07:30] LABS: Anion Gap 11 (5-15); BUN 10 mg/dL (4-19); Calcium,Total 7.9 mg/dL (7.6-11.0); Chloride 102 mmol/L (98-108); Creatinine, Serum 0.67 mg/dL (0.70-1.20); EST Glomerular Filtration Rate 94 (>60); Estimated Creatinine Clearance 70.43 ml/min (50-250); Glucose 121 mg/dL (70-99); Potassium 4.1 mmol/L (3.3-5.1); Sodium Level 135 mmol/L (133-145)
--- NOTE | 2024-08-03 07:31 | PCM.PN.HOSP ---
Reason for Visit Reason for Visit: Diagnoses Periprosthetic fracture around other internal prosthetic joint, initial encounter (08/01/24) Contusion of scalp, initial encounter (08/01/24) Unspecified injury of head, initial encounter (08/01/24) Unspecified fracture of left femur, initial encounter for closed fracture (08/01/24) Presence of unspecified artificial knee joint (08/01/24) Subjective Subjective Patient underwent left distal femur retrograde nailing on 08/02/2024. Diagnostic data this a.m. reviewed significant for hemoglobin of 9.4. Patient seen this a.m. complains of sore throat ordered Cepacol lozenges Objective Data Objective Data Vital Signs: Vital Signs Temp Pulse Resp BP Pulse Ox O2 Del Method O2 Flow Rate 97.4 F L 85 16 128/66 H 100 Nasal Cannula 2 08/03/24 03:12 08/03/24 03:12 08/03/24 03:12 08/03/24 03:12 08/03/24 03:12 08/03/24 03:12 08/03/24 03:12 Oxygen Flow Rate (L/min) 2 Oxygen Delivery Method Nasal Cannula Weight: 95.3 kg Body Mass Index (BMI) 38.6 Intake & Output: Intake and Output for Last 24 Hours 08/01/24 08/02/24 08/03/24 23:59 23:59 23:59 Intake Total 1480 / 1480 3459.83 / 3459.83 920 / 920 Output Total 350 / 900 2660 / 2660 500 / 500 Balance 1130 / 580 799.83 / 799.83 420 / 420 Lab / Micro Data 08/03/24 05:45 08/03/24 05:45 Labs: Laboratory Results - last 24 hr 08/03/24 05:45: WBC 8.8, RBC 2.80 L, Hgb 9.4 L, Hct 28.5 L, MCV 101.8 H, MCH 33.6 H, MCHC 33.0, RDW Std Deviation 48.7 H, RDW Coeff of Lucio 13.2, Plt Count 119 L, MPV 13.0 H, Immature Gran % (Auto) 0.800, Neut % (Auto) 72.2 H, Lymph % (Auto) 15.6 L, [place] % (Auto) 11.1 H, Eos % (Auto) 0.0, Baso % (Auto) 0.3, Absolute Neuts (auto) 6.4, Absolute Lymphs (auto) 1.38, Nucleated RBC % 0, Sodium 135, Potassium 4.1, Chloride 102, Carbon Dioxide 22.0, Anion Gap 11, BUN 10, Creatinine 0.67 L, Estim Creat Clear Calc 70.43, Est GFR (MDRD) Non-Af 94, BUN/Creatinine Ratio 15.0, Glucose 121 H, Calcium 7.9 Radiography Diagnostic Testing: Radiology Impression Abdomen Ultrasound 08/02/24 08:02 IMPRESSION: Status post cholecystectomy. No abnormalities involving the liver. Unremarkable gallbladder, pancreas, and right kidney. Reading Location: [place] [address] Femur X-Ray 08/02/24 14:00 IMPRESSION: Satisfactory internal fixation of comminuted left distal femoral fracture as detailed above. Fluoroscopy: 82.6 sec Dose: 12.20 mGy Reading Location: [place] [address] Physical Exam Narrative GENERAL: cooperative HEENT: Left temporal hematoma EYES; Anicteric, Normal Conjunctiva NECK; supple, normal thyroid, RESPIRATORY: Diminished to auscultation CARDIOVASCULAR: Regular S1 S2, GI: soft, normoactive bowel sounds, : No Renal angle tenderness; EXTREMITIES: No edema, no clubbing, MUSCULOSKELETAL: Incision site clean NEURO: Awake; no lateralizing signs. SKIN: No Rash PSYCH; Flat affect Assessment & Plan Assessment/Plan (1) Hematoma of scalp: (2) Closed head injury: PLAN: Plan Patient is a 68-year-old lady admitted following an unwitnessed fall 1. Fall with Acute left distal femoral fracture. ? Event leading to patient's fall unclear. Imaging studies demonstrated acute left distal femoral fracture. Patient has been admitted to regular nursing floor treatment initiated with immobilization, pain management and consultation placed to orthopedic surgery. Plan is for patient to undergo ORIF in a.m. Patient risk for surgical intervention moderate. Did review patient initial diagnostic studies would not recommend any further workup prior to patient intervention ? 08/03/2024; patient underwent left distal femur retrograde nailing on 08/02/2024. 2. Closed head injury ? Following patient for. Patient did develop left scalp hematoma CT of the head obtained on admission did show. No acute intracranial finding. Moderate-sized hematoma along the left lateral scalp. 3. Seizure disorder ? Patient presented with a fall however she was not noted to be incontinent of urine or stool is not clear whether patient had a seizure. Will institute seizure protocol. Plan is to resume patient antiseizure medications after home meds have been reconciled 4. Hypokalemia ? Corrected per protocol repeat BMP ordered in a.m. 5. Hypothyroidism ? Patient is on levothyroxine home dose continued 6. Depression with anxiety ? Patient is on fluoxetine plan is to resume following med reconciliation 7. Anemia ? Due to combination of anemia of chronic disorder as well as suspected acute blood loss anemia following patient's femur fracture. Requested for H&H and patient was typed and screened for 2 unit PRBC ? 08/03/2024; hemoglobin down to 9.4 we will continue with monitoring. 8. Elevated transaminase ?? Drug effect from patient antiseizure medication ordered renal ultrasound for subsequent eval 9. DVT prophylaxis ? Bilateral SCDs for now with plan to initiate systemic anticoagulation following patient surgical intervention 10. Throat irritation ? Ordered Cepacol lozenges Charges/Coding Visit Charges Inpatient E&M: 47081 Subs Hosp L2
[2024-08-03 09:08] VITALS: BP 96/40; PULSE 64; RESP 15; TEMP 36.7; O2SAT 92
[2024-08-03] MEDS: FLUoxetine 20 MG Capsule PO (09:20)
[2024-08-03] MEDS: Calcium Carbonate 500 MG Tablet PO ×3 (09:20→16:25)
[2024-08-03] MEDS: Divalproex Sodium 250 MG Tablet 500 MG PO ×2 (09:20→21:29)
[2024-08-03] MEDS: Potassium Chloride Oral Tablet 20 MEQ PO ×2 (09:20→16:24)
[2024-08-03 11:24] VITALS: BP 102/50; PULSE 75
[2024-08-03] MEDS: Primidone 250 MG Tablet PO ×2 (11:26→21:29)
--- NOTE | 2024-08-03 11:41 | PN.ORTHO_ITS ---
Subjective Subjective Patient is s/p left distal femur retrograde nailing with Dr. Shah 08/02/2024. Patient had a fall downstairs while at home and was found to have a periprosthetic displaced left distal femur fracture. Patient resting comfortably in bed. Rates pain 7/ 10 . States taking Tylenol and oxycodone and ice help to relieve pain. Patient has been up with therapy. Walking with the assit of a walker as she is toe-touch weightbearing only to left lower extremity. Afebrile, no chest pain, shortness of breath, negative calf pain/ erythema, and no other signs of DVT. Objective Data Objective Data Vital Signs: Vital Signs Temp Pulse Resp BP Pulse Ox O2 Del Method O2 Flow Rate 98.1 F 75 15 102/50 L 92 Room Air 2 08/03/24 09:08 08/03/24 11:24 08/03/24 09:08 08/03/24 11:24 08/03/24 09:08 08/03/24 09:10 08/03/24 03:12 Oxygen Flow Rate (L/min) 2 Oxygen Delivery Method Room Air Weight: 95.3 kg Body Mass Index (BMI) 38.6 Intake & Output: Intake and Output for Last 24 Hours 08/01/24 08/02/24 08/03/24 23:59 23:59 23:59 Intake Total 1480 / 1480 3459.83 / 3459.83 920 / 920 Output Total 350 / 900 2660 / 2660 500 / 500 Balance 1130 / 580 799.83 / 799.83 420 / 420 Lab / Micro Data 08/03/24 05:45 08/03/24 05:45 Labs: Laboratory Results - last 24 hr 08/03/24 05:45: WBC 8.8, RBC 2.80 L, Hgb 9.4 L, Hct 28.5 L, MCV 101.8 H, MCH 33.6 H, MCHC 33.0, RDW Std Deviation 48.7 H, RDW Coeff of Lucio 13.2, Plt Count 119 L, MPV 13.0 H, Immature Gran % (Auto) 0.800, Neut % (Auto) 72.2 H, Lymph % (Auto) 15.6 L, Fajardo % (Auto) 11.1 H, Eos % (Auto) 0.0, Baso % (Auto) 0.3, Absolute Neuts (auto) 6.4, Absolute Lymphs (auto) 1.38, Nucleated RBC % 0, Sodium 135, Potassium 4.1, Chloride 102, Carbon Dioxide 22.0, Anion Gap 11, BUN 10, Creatinine 0.67 L, Estim Creat Clear Calc 70.43, Est GFR (MDRD) Non-Af 94, BUN/Creatinine Ratio 15.0, Glucose 121 H, Calcium 7.9 Radiography Diagnostic Testing: Radiology Impression Abdomen Ultrasound 08/02/24 08:02 IMPRESSION: Status post cholecystectomy. No abnormalities involving the liver. Unremarkable gallbladder, pancreas, and right kidney. Reading Location: [facility]-1 Femur X-Ray 08/02/24 14:00 IMPRESSION: Satisfactory internal fixation of comminuted left distal femoral fracture as detailed above. Fluoroscopy: 82.6 sec Dose: 12.20 mGy Reading Location: [facility]- Physical Exam Narrative Patient resting comfortably in bedside chair No signs of acute distress Satting well on room air Limb is warm to touch, Sensation intact throughout entire lower extremity, including saphenous, sural, superficial and deep peroneal, and tibial distribution. DP/PT pulses bounding. Dorsiflexion plantarflexion strength 5/5 Dressing clear dry intact Calf nontender to palpation, no erythema, no edema. Negative Homans Assessment & Plan Assessment/Plan (1) Periprosthetic fracture around internal prosthetic knee joint: PLAN: 1. Will continue PT today. Touchdown weightbearing left leg x 2 weeks. Does not need knee immobilizer. 2. plan for discharge per primary. 3. Patient will follow up for post op appointment in 2 weeks in our office. This will need to be arranged. 4. WBC 8.8 no acute reactive leukocytosis 5. H/H 9.4/28.5: Acute on chronic anemia. Likely some post operavtive anemia secondary to acute blood loss intraoperatively. Patient is asymptomatic at this time. No intraoperative complications. will continue to monitor. Interventions or transfusions per hospitalist team. 6. DVT prophylaxis : Lovenox 40 mg subcu daily x 4 weeks postoperatively. 7. Pain control: patient instructed to take tylenol 500mg 2 tablets TID. and oxycodone 1-2 tablets every 4-6 hours only as needed for pain control. 8. Patient also needs to be given prescription of doxycycline 100 mg twice daily x 7 days postoperatively due to revision and elevated BMI. For prophylaxis. 9. ok to remove post op dressing. post op day 5 10. orthopaedics will sign off at this time.
--- NOTE | 2024-08-03 13:16 | CASEMGMT ---
RENATA PARIKH Assessment Face to Face with patient for initial transition planning/care coordination assessment. RENATA PARIKH introduced self and role at [facility], pt voices understanding. Pt is A&Ox4 and is resting comfortably in the chair and is calm. Pt's sister is at bedside. Care providers, pharmacy, and demographics verified. Admitting dx: Lt Femoral Fracture LACE Strata: 1 PCP: Silvia Khan Specialists: Alyssa (Ortho) Preferred Pharmacy: [facility] Insurance: [facility] Prescription Benefit: Yes LNOK: Jennifer (Sister), Vicki (Sister) Living Arrangements: Pt lives alone in a single story home with a flat entrance ADLs/IADLs: Pt states that she is independent at baseline but is now requiring assistance Transportation: self, sister DME: Pt reports that she has access to a FWW and shower chair. Pt does not have a medical alert system and denies resources. Pt states that she can get this on her own. HHC/SNF: Denies history. Pt states that she has been to OP PT in the past in [place] Pt?s goal: Return to PLOF Plan: See PT notes. Anticipate SNF at the time of DC. At this time, the pt states that she has connections with [facility] and prefers to go to this SNF at the time of DC. Pt denies wanting to review a list of options at this time. Pt denies further needs. MS3 RENATA PARIKH and SW notified. Care Management to follow. Charlie Bauer RN, CM
[2024-08-03] MEDS: 0.9% Saline Lock 10 ML Syringe IV (13:17)
--- NOTE | 2024-08-03 13:52 | CASEMGMT ---
Addendum entered by Caitie Brown 08/03/24 16:10: [facility] has accepted and will submit for precert. SW updated. Caitie Brown DC Planning Asst. Original Note: Discharge Planning Referral sent to [facility]. Caitie Brown DC Planning Asst.
[2024-08-03 14:57] VITALS: BP 120/56; PULSE 83; RESP 16; TEMP 38.7; O2SAT 94
--- NOTE | 2024-08-03 16:10 | CASEMGMT ---
Social Work- SW advised that pt would like referral to [facility]. DCA notified of referral request. [facility] accepted referral. Pt updated. Precert to be started. SW remains available to follow. NAIF Perez
[2024-08-03] MEDS: MELATONIN 3 MG TABLET PO (21:29)
[2024-08-03] MEDS: Divalproex Sodium 125 MG Tablet PO (21:29)
[2024-08-03 21:35] VITALS: BP 119/54; PULSE 90; RESP 16; TEMP 37.7; O2SAT 94
[2024-08-04] MEDS: Enoxaparin 40 MG/0.4 ML Syringe SC (04:57)
[2024-08-04] MEDS: Levothyroxine 100 MCG Tablet PO (04:58)
[2024-08-04] MEDS: oxyCODONE 5 MG Tablet PO (04:58)
[2024-08-04] MEDS: Acetaminophen 500 MG Tablet 1000 MG PO (04:58)
[2024-08-04 05:19] VITALS: BP 127/61; PULSE 74; RESP 16; TEMP 36.9; O2SAT 96
[2024-08-04 06:00] VITALS: BMI 38.7
--- NOTE | 2024-08-04 07:18 | PCM.PN.HOSP ---
Reason for Visit Reason for Visit: Diagnoses Periprosthetic fracture around other internal prosthetic joint, initial encounter (08/01/24) Contusion of scalp, initial encounter (08/01/24) Unspecified injury of head, initial encounter (08/01/24) Unspecified fracture of left femur, initial encounter for closed fracture (08/01/24) Presence of unspecified artificial knee joint (08/01/24) Subjective Subjective Patient hemoglobin down to 8.5 however no indication for blood transfusion. Patient has been approved to be transferred to a snf facility Objective Data Objective Data Vital Signs: Vital Signs Temp Pulse Resp BP Pulse Ox O2 Del Method O2 Flow Rate 98.4 F 74 16 127/61 H 96 Room Air 2 08/04/24 05:19 08/04/24 05:19 08/04/24 05:19 08/04/24 05:19 08/04/24 05:19 08/04/24 05:19 08/03/24 03:12 Oxygen Flow Rate (L/min) 2 Oxygen Delivery Method Room Air Weight: 95.4 kg Body Mass Index (BMI) 38.7 Intake & Output: Intake and Output for Last 24 Hours 08/02/24 08/03/24 08/04/24 23:59 23:59 23:59 Intake Total 3459.83 / 3459.83 1030 / 1030 Output Total 2660 / 2660 1000 / 1000 1000 / 1000 Balance 799.83 / 799.83 30 / 30 -1000 / -1000 Lab / Micro Data 08/04/24 05:57 08/04/24 05:57 Labs: Laboratory Results - last 24 hr 08/03/24 05:45: Sodium 135, Potassium 4.1, Chloride 102, Carbon Dioxide 22.0, Anion Gap 11, BUN 10, Creatinine 0.67 L, Estim Creat Clear Calc 70.43, Est GFR (MDRD) Non-Af 94, BUN/Creatinine Ratio 15.0, Glucose 121 H, Calcium 7.9 Physical Exam Narrative GENERAL: cooperative HEENT: Left temporal hematoma EYES; Anicteric, Normal Conjunctiva NECK; supple, normal thyroid, RESPIRATORY: Diminished to auscultation CARDIOVASCULAR: Regular S1 S2, GI: soft, normoactive bowel sounds, : No Renal angle tenderness; EXTREMITIES: No edema, no clubbing, MUSCULOSKELETAL: Incision site clean NEURO: Awake; no lateralizing signs. SKIN: No Rash PSYCH; Flat affect Assessment & Plan Assessment/Plan (1) Hematoma of scalp: (2) Closed head injury: PLAN: Plan Patient is a 68-year-old lady admitted following an unwitnessed fall 1. Fall with Acute left distal femoral fracture. ? Event leading to patient's fall unclear. Imaging studies demonstrated acute left distal femoral fracture. Patient has been admitted to regular nursing floor treatment initiated with immobilization, pain management and consultation placed to orthopedic surgery. Plan is for patient to undergo ORIF in a.m. Patient risk for surgical intervention moderate. Did review patient initial diagnostic studies would not recommend any further workup prior to patient intervention ? 08/03/2024; patient underwent left distal femur retrograde nailing on 08/02/2024. 2. Closed head injury ? Following patient for. Patient did develop left scalp hematoma CT of the head obtained on admission did show. No acute intracranial finding. Moderate-sized hematoma along the left lateral scalp. 3. Seizure disorder ? Patient presented with a fall however she was not noted to be incontinent of urine or stool is not clear whether patient had a seizure. Will institute seizure protocol. Plan is to resume patient antiseizure medications after home meds have been reconciled 4. Hypokalemia ? Corrected per protocol repeat BMP ordered in a.m. 5. Hypothyroidism ? Patient is on levothyroxine home dose continued 6. Depression with anxiety ? Patient is on fluoxetine plan is to resume following med reconciliation 7. Anemia ? Due to combination of anemia of chronic disorder as well as suspected acute blood loss anemia following patient's femur fracture. Requested for H&H and patient was typed and screened for 2 unit PRBC ? 08/03/2024; hemoglobin down to 9.4 we will continue with monitoring. 8. Elevated transaminase ?? Drug effect from patient antiseizure medication ordered renal ultrasound for subsequent eval 9. DVT prophylaxis ? Bilateral SCDs for now with plan to initiate systemic anticoagulation following patient surgical intervention 10. Throat irritation ? Ordered Cepacol lozenges
[2024-08-04 07:45] LABS: Absolute Lymphocyte Count 1.67 X10^3/uL (0.83-4.51); Absolute Neutrophil Count 6.2 X10^3/uL (2.0-7.7); Basophil# 0.03 X10^3/uL; Basophil% 0.3 % (0-1); Eosinophil# 0.06 X10^3/uL; Eosinophils% 0.6 % (0-5); Hematocrit 25.5 % (37-47); Hemoglobin 8.5 g/dL (12.0-15.0); Lymphocyte # 1.67 X10^3/ul (0.83-4.51); Lymphocyte % 17.9 % (19-41); Mean Corp Hgb Conc 33.3 g/dL (32-36); Mean Corpuscular Hgb 33.1 pg (27.0-32.0); Mean Corpuscular Volume 99.2 fL (81-99); Mean Platelet Vol. 12.4 fl (6.2-12.0); Monocyte# 1.34 X10^3/uL; Monocyte% 14.4 % (0-10); NRBC Flagged by Analyzer 0 % (0-5); Neutrophil # 6.17 X10^3/uL (2.7-7.7); Neutrophil % 66.4 % (47-70); Platelet Count 172 K/mm3 (150-450); RBC Distribution Width CV 13.3 % (11.6-14.6); RBC Distribution Width SD 47.8 fl (35.1-43.9); Red Blood Count 2.57 M/mm3 (4.2-5.4); White Blood Count 9.3 K/mm3 (4.4-11.0)
[2024-08-04 07:48] LABS: Anion Gap 10 (5-15); BUN 13 mg/dL (4-19); BUN/Creat Ratio 19.4 RATIO (10-20); Calcium,Total 8.3 mg/dL (7.6-11.0); Carbon Dioxide 24.5 mmol/L (21.0-32.0); Chloride 103 mmol/L (98-108); Creatinine, Serum 0.65 mg/dL (0.70-1.20); EST Glomerular Filtration Rate 95 (>60); Estimated Creatinine Clearance 70.47 ml/min (50-250); Glucose 112 mg/dL (70-99); Potassium 3.9 mmol/L (3.3-5.1); Sodium Level 137 mmol/L (133-145)
--- NOTE | 2024-08-04 07:52 | CASEMGMT ---
Discharge Planning [facility] has obtained auth to admit. Caitie Brown DC Planning Asst.
--- NOTE | 2024-08-04 09:00 | PCM.TXEXTCAR ---
Diet Diet Order/Speech Therapy: INPATIENT Hospital Diet / Speech Therapy Order(s) 08/02/24 21:05 Diet: Regular - General Routine Orders/Code Status Code Status: DNRCC-A DC O2, CPAP, BIPAP needs Home O2 Discharge instructions: No Wound(s) LEFT LEG: Wound Type: Surgical Incision Therapies Physical Therapy: Eval and Treat Occupational Therapy: Eval and Treat Problem/Diagnosis (1) Hematoma of scalp: Status: Acute Code(s): S00.03XA - Contusion of scalp, initial encounter (2) Closed head injury: Status: Acute Code(s): S09.90XA - Unspecified injury of head, initial encounter Plan Patient is a 68-year-old lady admitted following an unwitnessed fall 1. Fall with Acute left distal femoral fracture. ? Event leading to patient's fall unclear. Imaging studies demonstrated acute left distal femoral fracture. Patient has been admitted to regular nursing floor treatment initiated with immobilization, pain management and consultation placed to orthopedic surgery. Plan is for patient to undergo ORIF in a.m. Patient risk for surgical intervention moderate. Did review patient initial diagnostic studies would not recommend any further workup prior to patient intervention ? 08/03/2024; patient underwent left distal femur retrograde nailing on 08/02/2024. 2. Closed head injury ? Following patient for. Patient did develop left scalp hematoma CT of the head obtained on admission did show. No acute intracranial finding. Moderate-sized hematoma along the left lateral scalp. 3. Seizure disorder ? Patient presented with a fall however she was not noted to be incontinent of urine or stool is not clear whether patient had a seizure. Will institute seizure protocol. Plan is to resume patient antiseizure medications after home meds have been reconciled 4. Hypokalemia ? Corrected per protocol repeat BMP ordered in a.m. 5. Hypothyroidism ? Patient is on levothyroxine home dose continued 6. Depression with anxiety ? Patient is on fluoxetine plan is to resume following med reconciliation 7. Anemia ? Due to combination of anemia of chronic disorder as well as suspected acute blood loss anemia following patient's femur fracture. Requested for H&H and patient was typed and screened for 2 unit PRBC ? 08/03/2024; hemoglobin down to 9.4 we will continue with monitoring. 8. Elevated transaminase ?? Drug effect from patient antiseizure medication ordered renal ultrasound for subsequent eval 9. DVT prophylaxis ? Bilateral SCDs for now with plan to initiate systemic anticoagulation following patient surgical intervention ? Subcu Lovenox 10. Throat irritation ? Ordered Cepacol lozenges 11. Physical deconditioning ? Requested for PT OT eval and social media sr strategy manager to assist with discharge planning Allergies/Procedures Done in Hospital Allergies No Known Allergies Allergy (Verified 08/01/24 10:39) Type of Care/Length of Stay Estimated LOS: Convalescent Care Less Than 30 days Type of Care Needed: Skilled Rehab Potential: Good Prognosis: Good Additional Orders/Day of Discharge Day of Discharge: 08/04/24 Dietary and Speech Recommendations Dietitian Recommendations/Changes: As medically able, rec LAURA to [facility] regular Will interview pt re: wt hx at time of follow up and make additional rec as indicated Discharge Plan Admission Admit Date/Time: 08/01/24 12:23 Attending Provider: Mark Marie Primary Care Provider: Silvia Khan [employer] Consulting Providers: Collin Shah Discharge Orders/Prescriptions Prescriptions: New sennosides-docusate sodium [Stimulant Laxative Plus] 8.6-50 mg Tablet 2 tab PO BID PRN PRN (Reason: Constipation) Qty: 0 0RF acetaminophen 500 mg Tablet 1,000 mg PO Q8 Qty: 0 0RF potassium chloride 20 mEq Tablet,Er Particles/Crystals 20 meq PO BIDCM Qty: 0 0RF calcium carbonate 200 mg calcium (500 mg) Tablet,Chewable 500 mg PO TIDCM Qty: 0 0RF oxycodone 5 mg Tablet 5 mg PO Q4H PRN PRN (Reason: Pain Score 4-10) 2 Days Qty: 8 0RF polysaccharide iron complex [Ferrex 150] 150 mg iron Capsule 150 mg PO DAILY Qty: 0 0RF melatonin 3 mg Tablet 3 mg PO QHS PRN PRN (Reason: Insomnia) Qty: 0 0RF nitroglycerin 0.4 mg Tablet, Sublingual 0.4 mg sublingual Q5M PRN (Reason: Cardiac/Chest Pain) Qty: 0 0RF alum-mag hydroxide-simeth [Mag-Al Plus Extra Strength] 400-400-40 mg/5 mL Suspension 30 ml PO Q6H PRN PRN (Reason: Gastric Burning) Qty: 0 0RF enoxaparin 40 mg/0.4 mL Syringe 40 mg subcut DAILY@0600 30 Days Qty: 0 0RF doxycycline monohydrate 100 mg Capsule 100 mg PO BID Qty: 0 0RF Continued Resistance Formula Probiotic 10 billion cell capsule 10,000 mmu cells PO BID Qty: 60 0RF divalproex 250 MG tablet 500 mg PO BID Patient Comments: 2 TABS IN AM, 2 TABS IN PM WITH 125MG. levothyroxine [Levoxyl] 100 MCG tablet 100 mcg PO DAILY primidone 250 MG tablet 250 mg PO BID fluoxetine 20 MG tablet 20 mg PO DAILY divalproex 125 MG tablet 125 mg PO QHS Patient Comments: 1 TAB IN PM WITH 2 - 250MG TABS TO EQUAL 625MG . Discontinued acetaminophen 500 MG tablet 1,000 mg PO Q8 PRN (Reason: pain) Referrals / Follow Up: Dale Dalal MD [Non-Staff] - Collin Shah DO [Med Staff - Active Staff] - Within 2 Weeks Silvia Khan NP, [employer] [Primary Care Provider] - Disposition Disposition (needs filled in before D/C Order can be placed): [facility] Facility
[2024-08-04 09:04] VITALS: O2SAT 96
--- NOTE | 2024-08-04 09:06 | DS.PCM_ITS ---
Providers Date of Admission: 08/01/24 Date of Discharge: 08/04/24 Primary Care Physician: Silvia Khan, JAE-Stefan Consultations 08/01/24 13:36 Consult: Orthopedics Routine Consulting Provider: Collin Shah Reason for Consult: Acute left femur neck fracture EMERGENT Consult: No MD Notified: Yes Date Notified: 08/01/24 Time Notified: 12:28 Method of Notification: ED Physician Initiated Reason For Visit: LEFT DISTAL FFEMORAL FRACTURE Diagnosis Discharge Diagnosis (1) Hematoma of scalp: Status: Acute Code(s): S00.03XA - Contusion of scalp, initial encounter (2) Closed head injury: Status: Acute Code(s): S09.90XA - Unspecified injury of head, initial encounter Plan Patient is a 68-year-old lady admitted following an unwitnessed fall 1. Fall with Acute left distal femoral fracture. ? Event leading to patient's fall unclear. Imaging studies demonstrated acute left distal femoral fracture. Patient has been admitted to regular nursing floor treatment initiated with immobilization, pain management and consultation placed to orthopedic surgery. Plan is for patient to undergo ORIF in a.m. Patient risk for surgical intervention moderate. Did review patient initial diagnostic studies would not recommend any further workup prior to patient intervention ? 08/03/2024; patient underwent left distal femur retrograde nailing on 08/02/2024. ? 08/04/2024; [facility] following approval for insurance precertification. Patient was discharged on Lovenox for DVT prophylaxis for 30 days as well as doxycycline 10 mg p.o. twice daily for 10 days plan for patient to follow-up with Dr. Shah as outpatient 2. Closed head injury ? Following patient for. Patient did develop left scalp hematoma CT of the head obtained on admission did show. No acute intracranial finding. Moderate-sized hematoma along the left lateral scalp. 3. Seizure disorder ? Patient presented with a fall however she was not noted to be incontinent of urine or stool is not clear whether patient had a seizure. Will institute seizure protocol. Plan is to resume patient antiseizure medications after home meds have been reconciled 4. Hypokalemia ? Corrected per protocol repeat BMP ordered in a.m. 5. Hypothyroidism ? Patient is on levothyroxine home dose continued 6. Depression with anxiety ? Patient is on fluoxetine plan is to resume following med reconciliation 7. Anemia ? Due to combination of anemia of chronic disorder as well as suspected acute blood loss anemia following patient's femur fracture. Requested for H&H and patient was typed and screened for 2 unit PRBC ? 08/03/2024; hemoglobin down to 9.4 we will continue with monitoring. 8. Elevated transaminase ?? Drug effect from patient antiseizure medication ordered renal ultrasound for subsequent eval 9. DVT prophylaxis ? Bilateral SCDs for now with plan to initiate systemic anticoagulation following patient surgical intervention ? Subcu Lovenox 10. Throat irritation ? Ordered Cepacol lozenges 11. Physical deconditioning ? Requested for PT OT eval and director of social services to assist with discharge planning Medications at Discharge Home Medications divalproex 125 mg tablet,delayed release 125 mg PO QHS SEIZURES 10/14/14 divalproex 250 mg tablet,delayed release 500 mg PO BID SEIZURES 10/14/14 fluoxetine 20 mg tablet 20 mg PO DAILY DEPRESSION 10/14/14 levothyroxine 100 mcg tablet (Levoxyl) 100 mcg PO DAILY THYROID 10/14/14 primidone 250 mg tablet 250 mg PO BID SEIZURES 10/14/14 Saccharomyces boulardii 10 billion cell capsule (Resistance Formula Probiotic) 10,000 mmu cells PO BID supplement #60 caps 01/10/23 acetaminophen 500 mg tablet 1,000 mg (2 x 500 mg) PO Q8 #0 tabs 08/04/24 aluminum-mag hydroxide-simethicone 400 mg-400 mg-40 mg/5 mL oral susp (Mag-Al Plus Extra Strength) 30 ml PO Q6H PRN PRN Gastric Burning #0 mL 08/04/24 calcium carbonate 500 mg (2.5 x 200 mg calcium (500 mg)) PO TIDCM #0 tabs 08/04/24 doxycycline monohydrate 100 mg capsule 100 mg PO BID #0 caps 08/04/24 enoxaparin 40 mg/0.4 mL subcutaneous syringe 40 mg (0.4 mL) subcut DAILY@0600 30 days #0 mL 08/04/24 melatonin 3 mg tablet 3 mg PO QHS PRN PRN Insomnia #0 tabs 08/04/24 nitroglycerin 0.4 mg sublingual tablet 0.4 mg sublingual Q5M PRN Cardiac/Chest Pain #0 tabs 08/04/24 oxycodone 5 mg tablet 5 mg PO Q4H PRN PRN Pain Score 4-10 2 days #8 tabs 08/04/24 polysaccharide iron complex 150 mg iron capsule (Ferrex) 150 mg PO DAILY #0 caps 08/04/24 potassium chloride 20 mEq tablet,extended release(part/cryst) 20 meq PO BIDCM #0 tabs 08/04/24 sennosides 8.6 mg-docusate sodium 50 mg tablet (Stimulant Laxative Plus) 2 tab PO BID PRN PRN Constipation #0 tabs 08/04/24 Hospital Course Summary of Care Provided Minutes Spent on Discharge: 35 Physical Exam Narrative GENERAL: cooperative HEENT: Left temporal hematoma EYES; Anicteric, Normal Conjunctiva NECK; supple, normal thyroid, RESPIRATORY: Diminished to auscultation CARDIOVASCULAR: Regular S1 S2, GI: soft, normoactive bowel sounds, : No Renal angle tenderness; EXTREMITIES: No edema, no clubbing, MUSCULOSKELETAL: Incision site clean NEURO: Awake; no lateralizing signs. SKIN: No Rash PSYCH; Flat affect Weight / BMI Weight Weight: 95.4 kg Body Mass Index (BMI) 38.7 ABG / Lab / Microbiology Data 08/04/24 05:57 08/04/24 05:57 Laboratory: Laboratory Results - last 24 hr 08/04/24 05:57: WBC 9.3, RBC 2.57 L, Hgb 8.5 L, Hct 25.5 L, MCV 99.2 H, MCH 33.1 H, MCHC 33.3, RDW Std Deviation 47.8 H, RDW Coeff of Lucio 13.3, Plt Count 172, M PV 12.4 H, Immature Gran % (Auto) 0.400, Neut % (Auto) 66.4, Lymph % (Auto) 17.9 L, [place] % (Auto) 14.4 H, Eos % (Auto) 0.6, Baso % (Auto) 0.3, Absolute Neuts (auto) 6.2, Absolute Lymphs (auto) 1.67, Nucleated RBC % 0, Sodium 137, Potassium 3.9, Chloride 103, Carbon Dioxide 24.5, Anion Gap 10, BUN 13, C reatinine 0.65 L, Estim Creat Clear Calc 70.47, Est GFR (MDRD) Non-Af 95, BUN/Creatinine Ratio 19.4, Glucose 112 H, Calcium 8.3 D/C Instructions Discharge Diet: No restrictions Discharge Activity: Return to Normal Activity Call your doctor if you observe: Fever of 101 or Higher, Shortness of breath, Fainting spells and Chest pain DC O2, CPAP, BIPAP Needs Home O2 Discharge instructions: No Meaningful Use Info Meaningful Use Meaningful Use Diagnoses (Choose all that apply): None applicable Ischemic Stroke Statin Dosing Therapy Reference: STATIN DOSE THERAPY REFERENCE: * Patients > 75 years receive moderate or high dose statin therapy. * Patients 75 years or YOUNGER should receive HIGH intensity statin dose unless contraindicated. You will be required to document reason for non-treatment if statin daily dose does not meet guidelines. HIGH DOSE STATIN THERAPY DAILY Atorvastatin > than or = to 40 mg Rosuvastatin > than or = to 20 mg Amlodipine + Atorvastatin > than or = to 2.5/40 mg Ezetimibe + Simvastatin 10/80 mg Simvastatin 80mg Discharge Plan Admission Admit Date/Time: 08/01/24 12:23 Attending Provider: Mark Marie Primary Care Provider: Silvia Khan CUSTOMER SERVICE TECHNICIAN Consulting Providers: Collin Shah Discharge Orders/Prescriptions Prescriptions: New sennosides-docusate sodium [Stimulant Laxative Plus] 8.6-50 mg Tablet 2 tab PO BID PRN PRN (Reason: Constipation) Qty: 0 0RF acetaminophen 500 mg Tablet 1,000 mg PO Q8 Qty: 0 0RF potassium chloride 20 mEq Tablet,Er Particles/Crystals 20 meq PO BIDCM Qty: 0 0RF calcium carbonate 200 mg calcium (500 mg) Tablet,Chewable 500 mg PO TIDCM Qty: 0 0RF oxycodone 5 mg Tablet 5 mg PO Q4H PRN PRN (Reason: Pain Score 4-10) 2 Days Qty: 8 0RF polysaccharide iron complex [Ferrex 150] 150 mg iron Capsule 150 mg PO DAILY Qty: 0 0RF melatonin 3 mg Tablet 3 mg PO QHS PRN PRN (Reason: Insomnia) Qty: 0 0RF nitroglycerin 0.4 mg Tablet, Sublingual 0.4 mg sublingual Q5M PRN (Reason: Cardiac/Chest Pain) Qty: 0 0RF alum-mag hydroxide-simeth [Mag-Al Plus Extra Strength] 400-400-40 mg/5 mL Suspension 30 ml PO Q6H PRN PRN (Reason: Gastric Burning) Qty: 0 0RF enoxaparin 40 mg/0.4 mL Syringe 40 mg subcut DAILY@0600 30 Days Qty: 0 0RF doxycycline monohydrate 100 mg Capsule 100 mg PO BID Qty: 0 0RF Continued Resistance Formula Probiotic 10 billion cell capsule 10,000 mmu cells PO BID Qty: 60 0RF divalproex 250 MG tablet 500 mg PO BID Patient Comments: 2 TABS IN AM, 2 TABS IN PM WITH 125MG. levothyroxine [Levoxyl] 100 MCG tablet 100 mcg PO DAILY primidone 250 MG tablet 250 mg PO BID fluoxetine 20 MG tablet 20 mg PO DAILY divalproex 125 MG tablet 125 mg PO QHS Patient Comments: 1 TAB IN PM WITH 2 - 250MG TABS TO EQUAL 625MG . Discontinued acetaminophen 500 MG tablet 1,000 mg PO Q8 PRN (Reason: pain) Referrals / Follow Up: Dale Dalal MD [Non-Staff] - Collin Shah DO [Med Staff - Active Staff] - Within 2 Weeks Silvia Khan NP, CUSTOMER SERVICE TECHNICIAN-C [Primary Care Provider] - Disposition Disposition (needs filled in before D/C Order can be placed): Nursing Home Facility Charges/Coding Visit Charges Inpatient E&M: 56064 Disch Hosp >30min
[2024-08-04 09:13] VITALS: BP 107/53; PULSE 75; RESP 16; TEMP 36.8; O2SAT 93
--- NOTE | 2024-08-04 09:32 | CASEMGMT ---
Social Work Precert has been obtained.? Physician updated and pt is ready for discharge today.? 7000 convalescent form completed in [facility]. SW met with pt and they are agreeable to discharge plan as stated above.?Pt reports that brother will transport to [facility], as he has a wheelchair van. Pt reports that brother will be arriving at the hospital around 11AM. DCA and bedside nurse notified of discharge. Disposition:[facility], skilled level of care under convalescent stay. NAIF Perez
--- NOTE | 2024-08-04 09:45 | CASEMGMT ---
Discharge Planning Discharge orders, signed med list, and transport time sent to [facility]. Pts brother will transport pt by wheelchair at/around 11a. Nursing updated. Caitie Brown DC Planning Asst.
[2024-08-04] MEDS: Calcium Carbonate 500 MG Tablet PO (09:49)
[2024-08-04] MEDS: Potassium Chloride Oral Tablet 20 MEQ PO (09:49)
[2024-08-04] MEDS: FLUoxetine 20 MG Capsule PO (09:49)
[2024-08-04] MEDS: Primidone 250 MG Tablet PO (09:49)
[2024-08-04] MEDS: Doxycycline 100 MG CAPSULE PO (09:49)
[2024-08-04] MEDS: Divalproex Sodium 250 MG Tablet 500 MG PO (09:50)
[2024-08-04] MEDS: Iron Polysaccharide Complex 150 MG CAPSULE PO (09:51)
--- NOTE | 2024-08-04 10:15 | PHA.DC.MR.R ---
Pharmacy OR Med Reconciliation Pharmacy Service has performed discharge medication reconciliation for this patient. The patient's discharge medication list was reviewed for discrepancies and discrepancies were resolved. Medications at Discharge Home Medications divalproex 125 mg tablet,delayed release 125 mg PO QHS SEIZURES 10/14/14 divalproex 250 mg tablet,delayed release 500 mg PO BID SEIZURES 10/14/14 fluoxetine 20 mg tablet 20 mg PO DAILY DEPRESSION 10/14/14 levothyroxine 100 mcg tablet (Levoxyl) 100 mcg PO DAILY THYROID 10/14/14 primidone 250 mg tablet 250 mg PO BID SEIZURES 10/14/14 Saccharomyces boulardii 10 billion cell capsule (Resistance Formula Probiotic) 10,000 mmu cells PO BID supplement #60 caps 01/10/23 acetaminophen 500 mg tablet 1,000 mg (2 x 500 mg) PO Q8 #0 tabs 08/04/24 aluminum-mag hydroxide-simethicone 400 mg-400 mg-40 mg/5 mL oral susp (Mag-Al Plus Extra Strength) 30 ml PO Q6H PRN PRN Gastric Burning #0 mL 08/04/24 calcium carbonate 500 mg (2.5 x 200 mg calcium (500 mg)) PO TIDCM #0 tabs 08/04/24 doxycycline monohydrate 100 mg capsule 100 mg PO BID #0 caps 08/04/24 enoxaparin 40 mg/0.4 mL subcutaneous syringe 40 mg (0.4 mL) subcut DAILY@0600 30 days #0 mL 08/04/24 melatonin 3 mg tablet 3 mg PO QHS PRN PRN Insomnia #0 tabs 08/04/24 nitroglycerin 0.4 mg sublingual tablet 0.4 mg sublingual Q5M PRN Cardiac/Chest Pain #0 tabs 08/04/24 oxycodone 5 mg tablet 5 mg PO Q4H PRN PRN Pain Score 4-10 2 days #8 tabs 08/04/24 polysaccharide iron complex 150 mg iron capsule (Ferrex) 150 mg PO DAILY #0 caps 08/04/24 potassium chloride 20 mEq tablet,extended release(part/cryst) 20 meq PO BIDCM #0 tabs 08/04/24 sennosides 8.6 mg-docusate sodium 50 mg tablet (Stimulant Laxative Plus) 2 tab PO BID PRN PRN Constipation #0 tabs 08/04/24
== END 2024-08-04 11:59 | disposition skilled nursing facility (03) | DRG 481 ==
LOC: ED 12:24 → MS3 13:04
PROVIDERS: Anesthesiology; Physician Assistant; Student in an Organized Health Care Education/Training Program; Admitting Provider Internal Medicine; Emergency Provider Emergency Medicine; PCP Nurse Practitioner Family; Visit Provider Internal Medicine
PROC: (CPT 27245; principal; 2024-08-02 07:35)
DX: S72.352A Displaced comminuted fracture of shaft of left femur, initial encounter for closed fracture (principal); G40.909 Epilepsy, unspecified, not intractable, without status epilepticus; D62 Acute posthemorrhagic anemia; M97.12XA Periprosthetic fracture around internal prosthetic left knee joint, initial encounter; Z66 Do not resuscitate; E03.9 Hypothyroidism, unspecified; F32.A Depression, unspecified; F41.9 Anxiety disorder, unspecified; E87.6 Hypokalemia; S00.03XA Contusion of scalp, initial encounter; W10.9XXA Fall (on) (from) unspecified stairs and steps, initial encounter; Z53.39 Other specified procedure converted to open procedure; Y92.22 Religious institution as the place of occurrence of the external cause; R74.01 Elevation of levels of liver transaminase levels; T42.75XA Adverse effect of unspecified antiepileptic and sedative-hypnotic drugs, initial encounter; Y92.239 Unspecified place in hospital as the place of occurrence of the external cause; Z79.890 Hormone replacement therapy; Z79.899 Other long term (current) drug therapy; Z96.653 Presence of artificial knee joint, bilateral
CPT/HCPCS: 27506; 36415; 70450; 71045; 72125; 72170; 73552; 73700; 76000; 76705; 80048; 80053; 80164; 81001; 83735; 84100; 84156; 84443; 85025; 85730; 86850; 86900; 86901; 93005; 94668; 96361; 96365; 96366; 96372; 96375; 97162; 97166; 99221; 99285; C1713; A4216; G0378; J2405

== ENCOUNTER → 2024-09-06 05:00 | Outpatient (REF) | payer MEDICARE, SELFPAY ==
[2024-09-06 08:35] LABS: Valproic Acid (Depakene) Level 51 ug/mL (50-100)
== END ==
LOC: OLS.ACH 05:00
PROVIDERS: PCP Nurse Practitioner Family; Visit Provider Internal Medicine
DX: G40.89 Other seizures (principal)
CPT/HCPCS: 36415; 80164